=== PATIENT | male | born 2000 | race Two or more races ===

== ENCOUNTER 2025-09-01 19:42 | Inpatient (IN) | payer MEDICAID, SELFPAY ==
[2025-09-01 19:44] VITALS: BMI 37.5
--- NOTE | 2025-09-01 19:49 | EKG_ITS ---
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
[2025-09-01 19:55] VITALS: BP 102/63; PULSE 130; RESP 20; TEMP 39.3; O2SAT 96
--- NOTE | 2025-09-01 19:59 | XR_ITS ---
EXAMINATION: PA chest single view TECHNIQUE: Upright PA chest single view Date and time: September 01, 20252005 hours INDICATIONS: Weakness shortness of breath today fever 9 days FINDINGS: Normal heart size No pneumonia or pulmonary edema. The osseous mirela are intact. IMPRESSION: No active disease
--- NOTE | 2025-09-01 20:01 | PD.EDRME ---
Rapid Medical Screening Exam E Arrival date/time: 09/01/25 19:42 This is a case of 24-year-old male who came into the emergency room due to generalized weakness and chest pain for 2 days worsening of the symptoms this patient decided to start consult here in the emergency room Chief Complaint: Weakness Vital signs: Vital Signs Temperature 102.8 F H 09/01/25 19:55 Pulse Rate 130 H 09/01/25 19:55 Respiratory Rate 20 09/01/25 19:55 Blood Pressure 102/63 09/01/25 19:55 Pulse Oximetry (%) 96 09/01/25 19:55 Oxygen Delivery Method Room Air 09/01/25 19:55 Exam: And RRR clear breath sounds Clinical Impression: Chest pain generalized weakness
[2025-09-01 21:03] LABS: Basophils # (Auto) 0.0 Thou/mm3 (0.0-0.2); Basophils % (Auto) 0 % (0-2.5); Eosinophils # (Auto) 0.1 Thou/mm3 (0.0-0.5); Eosinophils % (Auto) 2 % (0-10); Hematocrit 35.8 % (41.0-53.0); Hemoglobin 12.7 g/dL (13.5-16.0); Immature Granulocytes Auto 0.01 Thou/mm3 (0.00-0.00); Lymphocytes # (Auto) 1.0 Thou/mm3 (1.0-4.8); Lymphocytes % (Auto) 18 % (10-50); Mean Corpuscular HGB Conc 35.5 g/dl (31.0-37.0); Mean Corpuscular Hemoglobin 30.8 pg (25.0-35.0); Mean Corpuscular Volume 87 fL (80-100); Monocytes # (Auto) 0.5 Thou/mm3 (0.0-0.8); Monocytes % (Auto) 9 % (0-12); Neutrophils # (Auto) 3.9 Thou/mm3 (1.8-7.7); Neutrophils % (Auto) 72 % (37-80); Nucleated Red Blood Cell # 0.00 Thou/mm3 (0.00-0.00); Nucleated Red Blood Cell % 0 /100 WBC (0); Platelet Count 129 Thou/mm3 (140-440); RDW Standard Deviation 38.9 fL (35.1-43.9); Red Blood Count 4.12 Miln/mm3 (4.50-5.90); White Blood Count 5.5 Thou/mm3 (3.8-10.6)
[2025-09-01 21:23] LABS: Alanine Aminotransferase 482 U/L (10-49); Albumin, Serum 4.1 gm/dL (3.5-5.0); Albumin/Globulin Ratio 1.5 (1.2-2.2); Alkaline Phosphatase 201 U/L (46-116); Anion Gap 9 (7-16); Aspartate Amino Transferase 183 U/L (0-34); BUN/Creatinine Ratio 11 Ratio (12-20); Bilirubin,Total 4.9 mg/dL (0.3-1.2); Blood Urea Nitrogen 9 mg/dL (9-23); Calcium 8.4 mg/dL (8.3-10.6); Calcium (Corrected) 8.4 mg/dL (8.5-10.1); Carbon Dioxide 23.0 mMol/L (20.0-31.0); Chloride 96 mMol/L (98-107); Creatinine (Component) 0.8 mg/dL (0.6-1.3); Estimated Creatinine Clearance 169.0 mL/min (>60); Globulin 2.8 gm/dL (2.3-3.5); Glucose 118 mg/dL (74-106); Osmolality,Calculated 256 (275-295); Potassium 3.4 mMol/L (3.4-5.1); Sodium 128 mMol/L (136-145); Total Protein 6.9 gm/dL (5.7-8.2); Troponin I 0.028 ng/mL (0.0-0.045); eGFR > 60 See Note
[2025-09-01 21:35] LABS: B-Type Natriuretic Peptide 204 pg/mL (0-100)
--- NOTE | 2025-09-01 21:37 | PD.EDWEAK ---
ED Weakness RME/HPI General Chief complaint: Weakness Stated complaint: RIGHT ABD PAIN, CHEST PAIN, SOB, FEVER, COUGH, Time Seen by Provider: 09/02/25 04:19 Arrival date/time: 09/01/25 19:42 RME / HPI RME / HPI Narrative: 09/01/25 19:42 This is a case of 24-year-old male who came into the emergency room due to generalized weakness and chest pain for 2 days worsening of the symptoms this patient decided to start consult here in the emergency room Dr. Hernandez?s Main ED Evaluation: 24yo male presenting with reported fever that's been ongoing for the last 9 days. Patient reports associated generalized body aches, occasional nonproductive cough, and generalized fatigue. Patient was seen by his PMD 3 days [employer], was diagnosed with otitis, and started on amoxicillin (which he discontinued due to GI upset). No vomiting or diarrhea. No URI-like symptoms. No obvious infectious exposures. PMH unremarkable. PSH noncontributory. No history of tobacco use. Reports recent methamphetamine abuse and near daily drinking nearly up to one case on the weekends. NKA. Related Data Home Medications ?Medication ?Instructions ?Recorded ?Confirmed No Known Home Medications 04/09/23 09/02/25 Allergies Allergy/AdvReac Type Severity Reaction Status Date / Time No Known Allergies Allergy Verified 09/01/25 19:43 Review of Systems Review of Systems Systems Reviewed: All systems reviewed, normal except as documented Past Medical History Past Medical History CARDIAC: Negative Congestive Heart Failure RESPIRATORY: Negative Chronic Obstructive Pulmonary Disease (COPD) GENITOURINARY: Negative Renal Disease ENDOCRINE: Negative Diabetes Mellitus Type 1 or Diabetes Mellitus Type 2 Social History SMOKING STATUS: Current some day smoker ED Exam Narrative Physical exam: GENERAL APPEARANCE: alert and oriented x 4, well-developed, well-nourished, no acute distress VITALS: All vitals were reviewed and the pulse ox is 96% on room air, which is normal according to my interpretation. Notably febrile and tachycardic. HEENT: Normocephalic, atraumatic; pupils equal, round, reactive to light; EOMI; mucous membranes pink, moist; oropharynx clear NECK: Supple LUNGS: CTABL; no wheezes, no rales, no rhonchi HEART: Tachycardic, regular rhythm; normal S1, S2; no murmurs ABDOMEN: non distended; normal BS; soft, no tenderness, no guarding, no rebound; no masses, no organomegaly, no hernia BACK: no CVA tenderness EXTREMITIES: atraumatic; no edema NEUROLOGIC: awake; alert and oriented x4; cranial nerves II-XII grossly intact; no focal sensory or motor deficits PSYCHIATRIC: appropriate mood and affect SKIN: warm, dry, slightly pale; no rashes Course Course Course Narrative: CXR is ordered for determining the etiology of weakness. 2145: Sepsis alert initiated. Orders made at this time are congruent with ED Adult Sepsis Order List. Re-evaluation is to be completed. 0: NS IVF started. 9: NS IVF infused. 0009: Sepsis reassessment performed consisting of lab review, vitals, physical exam including auscultation of heart, lungs, and visual evaluation of capillary refills, mucosal membranes and extremities. Quality Measures Possible source: GI tract/intra-abdominal Blood cultures ordered: yes Antibiotic ordered: Yes Pertinent labs: 09/01/25 09/01/25 20:39 21:58 Lactic Acid 1.1 mMol/L (0.4-2.0) Procalcitonin 0.53 H ng/ml (0.0-0.49) sepsis Orders Category Date Time Status Admit to Inpatient Status Routine Admission 09/02/25 04:29 Active Patient Condition Routine Admission 09/02/25 04:29 Ordered Activity as Tolerated Routine Care 09/02/25 04:31 Ordered Bedside COVID-19 Antigen Test NOW Care 09/02/25 01:35 Completed EKG (ED ONLY) *Do not use* NOW Care 09/01/25 19:49 Completed IV [Insert IV] NOW Care 09/01/25 22:18 Completed May take PO meds w/sips of H2O NEEDED Care 09/02/25 04:29 Active Notify provider NEEDED Care 09/02/25 04:[address] abdomen pelvis wo con Stat Exams 09/01/25 21:59 Completed EKG (ED Only) Stat Exams 09/01/25 19:49 Draft US liver Stat Exams 09/02/25 03:11 Completed XR chest 1V Stat Exams 09/01/25 19:59 Completed ANTIONE IFA Screen w/refl, IFA* Stat Lab 09/02/25 02:50 Received Acetaminophen Stat Lab 09/02/25 03:16 Completed BNP [B-Type Natriuretic Peptide] Stat Lab 09/01/25 20:39 Completed Bilirubin,Direct Stat Lab 09/02/25 02:34 Completed Blood Culture (Lab) Stat Lab 09/01/25 20:39 Received CBC AM DRAW Lab 09/02/25 07:25 Completed CBC AM DRAW Lab 09/03/25 05:00 Ordered CBC AM DRAW Lab 09/04/25 05:00 Ordered CBC Stat Lab 09/01/25 20:39 Completed CMP [Comprehensive Metabolic Panel] Stat Lab 09/01/25 20:39 Completed Chlamydia/GC/TV - PCR Stat Lab 09/02/25 15:15 Received Comprehensive Metabolic Panel AM DRAW Lab 09/02/25 07:25 Completed Comprehensive Metabolic Panel AM DRAW Lab 09/03/25 05:00 Ordered Comprehensive Metabolic Panel AM DRAW Lab 09/04/25 05:00 Ordered Cytomegalovirus Abs (IgG,IgM)* Stat Lab 09/02/25 14:30 Ordered Drug Screen,Urine Stat Lab 09/02/25 02:28 Completed Gerard-Jarrett Virus Ab Panel* Stat Lab 09/02/25 14:30 Ordered HIV (1&2) Antibody Rapid Stat Lab 09/02/25 02:40 Completed Hepatitis Acute Panel Stat Lab 09/01/25 20:39 Completed Influenza A & B Rapid Panel Stat Lab 09/02/25 05:40 Completed LDH (Lactate Dehydrogenase) Routine Lab 09/02/25 07:25 Completed Lactic Acid [Lactate (Lactic Acid)] Stat Lab 09/01/25 21:58 Completed Lipid Panel AM DRAW Lab 09/02/25 07:25 Completed Magnesium AM DRAW Lab 09/02/25 07:25 Completed Magnesium AM DRAW Lab 09/03/25 05:00 Ordered Magnesium AM DRAW Lab 09/04/25 05:00 Ordered Mitochondrial Ab w Rflx Titer* Stat Lab 09/02/25 Received PT [Prothrombin Time with INR] Stat Lab 09/02/25 02:35 Completed PTT [Partial Thromboplastin Time] Stat Lab 09/02/25 02:35 Completed Phosphorous AM DRAW Lab 09/03/25 05:00 Ordered Phosphorous AM DRAW Lab 09/04/25 05:00 Ordered Phosphorous AM DRAW Lab 09/05/25 05:00 Ordered Procalcitonin Stat Lab 09/01/25 20:39 Completed Reticulocyte Count Routine Lab 09/02/25 07:25 Completed Thyroid Stimulating Hormone AM DRAW Lab 09/02/25 07:25 Completed Troponin I Stat Lab 09/01/25 20:39 Completed Urinalysis Stat Lab 09/02/25 02:28 Completed Acetaminophen Tab [Tylenol Tab] Med 09/02/25 04:35 Active 650 mg PO Q6H PRN Acetaminophen Tab [Tylenol Tab] Med 09/02/25 04:35 Active 650 mg PO Q6H PRN Heparin Inj Med 09/02/25 06:00 Active 5,000 unit SC Q8HR Ondansetron Inj [Zofran Inj] Med 09/02/25 04:35 Active 4 mg IVP Q6H PRN Ringers Lactated 1000 ml [Lactated Ringers] 1,000 ml Med 09/02/25 03:22 Discontinued IV 999 mls/hr Sodium Chloride 0.9% 1000 ml [Ns] 1,000 ml Med 09/01/25 21:55 Discontinued IV 999 mls/hr Sodium Chloride 0.9% 1000 ml [Ns] 1,000 ml Med 09/01/25 21:55 Discontinued IV 999 mls/hr cefTRIAXone/D5w 1gm IV premix [Rocephin/D5w 1gm IV Med 09/01/25 21:56 Discontinued premix] 1 gm in 50 ml IV X1 Code Status Routine Oth 09/02/25 04:29 Ordered Vital Signs Vital signs: Vital Signs Temperature 102.8 F H 09/01/25 19:55 Pulse Rate 130 H 09/01/25 19:55 Respiratory Rate 20 09/01/25 19:55 Blood Pressure 102/63 09/01/25 19:55 Pulse Oximetry (%) 96 09/01/25 19:55 Oxygen Delivery Method Room Air 09/01/25 19:55 Weakness MDM Narrative MDM Narrative:: Scribe Attestation: 09/01/25 Molly Colbert am scribing for and in the presence of Dr. Hernandez. 24yo male presenting with reported fever that's been ongoing for the last 9 days. Patient reports associated generalized body aches, occasional nonproductive cough, and generalized fatigue. Please see PE findings. Labs demonstrated WBC 5.5, HnH 12/35, Plt 129. Chemistries demonstrated hyponatremia with Na 128, Cl 96, Glucose mildly elevated 118. LFTs are markedly elevated with total bilirubin 4.9, transaminases at 183 (AST), 482 (ALT), and 201 (Alk Phos). Troponin undetected. Procalcitonin mildly elevated at 0.53. CXR unremarkable. CT abdomen pelvis demonstrated no evidence of acute intra-abdominal pathology, however, there is port hepatis lymphadenopathy. Differential includes lymphoma, reactive lymphadenopathy, no evidence of ascites. Patient enrolled in sepsis protocol, received IV fluids and empiric antibiotics. After IV fluids, tachycardia improved to 107. Patient also received antipyretics with reduction of temperature to 99. UA pending. Will consider admission for empiric antibiotics pending cultures. Dx: acute febrile illness, sepsis, hepatitis Patient data External records reviewed:: [facility] previous records (Per chart review, patient was seen here on 04/12/23 for cocaine abuse.) Clinical information provided by:: patient Social determinants that could affect healthcare access:: substance use (history of) Patient has the following chronic illnesses:: none How is presenting disease/condition affected by chronic disease/condition?: no chronic disease Evaluation data The following diagnostics were reviewed and interpreted by me:: lab results, radiology exam(s) and EKG tracing(s) Lab and/or radiology exams considered but not ordered:: none Interpretation Summary: EKG done at 1957, sinus tachycardia, rate of 132, no acute pathological ST segment changes, no ectopy, normal intervals, left axis deviation, according to my interpretation. [facility] Report Signed Patient: KYLER VILLEDA Record#: [id number] Birthdate: 2000 Age/Sex: 24 / M Location: [facility] Attending Dr: Ordering Physician: Ebenezer Hodges Date of Service: 09/01/25 Procedure(s): XR chest 1V Accession Number(s): [id number] cc: Geoff Mccarty MD; Diego Chopra MD; Ebenezer Hodges~ EXAMINATION: PA chest single view TECHNIQUE: Upright PA chest single view Date and time: September 01, 20252005 hours INDICATIONS: Weakness shortness of breath today fever 9 days FINDINGS: Normal heart size No pneumonia or pulmonary edema. The osseous mirela are intact. IMPRESSION: No active disease Dictated By: Diego Chopra MD Signed By: <Electronically signed by Diego Chopra MD in OV> 09/01/252101 [place] Preliminary Report Draft Patient: KYLER VILLEDA Record#: [id number] Birthdate: 2000 Age/Sex: 24 / M Location: [facility] Attending Dr: Ordering Physician: Date of Service: Procedure(s): Accession Number(s): cc: ~ CT scan of the abdomen and pelvis without intravenous contrast (axial sections with sagittal and coronal reformats) September 02, 2025 0012 hours Clinical History: sepsis// biliary obstruction Comparison: No prior study is available for comparison. Findings: The evaluation is limited due to absence of intravenous contrast. Bibasilar dependent atelectasis is present. There is fatty infiltration of the liver. There is a left renal cyst, measuring 1.9 cm. The gallbladder, pancreas, spleen, kidneys and adrenals are unremarkable on this noncontrast study. No evidence of bowel obstruction. The appendix is within normal limits. There are multiple enlarged mesenteric, retroperitoneal and evelyn hepatis lymph nodes, the largest measuring 1.3 cm. The urinary bladder is unremarkable. There is no free fluid or free air. There is a transitional vertebra at the lumbosacral junction. Impression: Limited noncontrast study. No evidence of acute intra-abdominal or pelvic pathology. Mesenteric, retroperitoneal and evelyn hepatis lymphadenopathy, of unclear etiology. Recommend further evaluation. Other findings as described above. Report Electronically Signed By: Morgan Sykes 09/02/2025 1:19:23 AM [EST] Medications / Prescriptions Medications or Prescriptions considered but not ordered:: none Medication administrations:: Medication Administration History Acetaminophen (Acetaminophen 325 Mg Tablet) 650 mg PO Q6H PRN PRN Reason: Fever >100.3 Stop: 10/02/25 04:34 Last Admin: 09/02/25 11:46 Dose: 650 mg Documented By: Admin: 09/02/25 04:58 Dose: 650 mg Documented By: LINDA Acetaminophen (Acetaminophen 325 Mg Tablet) 650 mg PO Q6H PRN PRN Reason: PAIN SCALE 1-3 (mild Stop: 10/02/25 04:34 Folic Acid (Folic Acid 1 Mg Tablet) 1 mg PO BID [facility] Stop: 09/07/25 08:59 Last Admin: 09/02/25 09:55 Dose: 1 mg Documented By: JENNIFER Heparin Sodium (Porcine) (Heparin Sod Inj 5000 Unit/Ml Vial) 5,000 unit SC Q8HR [facility] Stop: 09/16/25 05:59 Last Admin: 09/02/25 13:21 Dose: 5,000 unit Documented By: JENNIFER Co-signed By: LUIS A Admin: 09/02/25 06:34 Dose: 5,000 unit Documented By: Co-signed By: MILAN Lorazepam (Lorazepam 0.5 Mg Tablet) 0.5 mg PO Q4HR PRN PRN Reason: CIWA Score 2-6 Stop: 09/07/25 08:24 Lorazepam (Lorazepam 0.5 Mg Tablet) 1 mg PO Q4HR PRN PRN Reason: CIWA SCORE 7-11 Stop: 09/07/25 08:24 Lorazepam (Lorazepam 0.5 Mg Tablet) 2 mg PO Q4HR PRN PRN Reason: CIWA SCORE 12-15 Stop: 09/07/25 08:24 Ondansetron HCl (Ondansetron Inj 2 Mg/Ml Inj 2 Ml) 4 mg IVP Q6H PRN; Protocol PRN Reason: NAUSEA OR VOMITING Stop: 10/02/25 04:34 Thiamine HCl (Thiamine 100 Mg Tablet) 100 mg PO BID [facility] Stop: 09/08/25 08:59 Discontinued Medications Sodium Chloride (Ns) 1,000 mls @ 999 mls/hr IV .Q1H1M ONE Stop: 09/01/25 22:55 Last Infusion: 09/01/25 23:39 Dose: Infused Documented By: Admin: 09/01/25 22:20 Dose: 999 mls/hr Documented By: LINDA Sodium Chloride (Ns) 1,000 mls @ 999 mls/hr IV .Q1H1M ONE Stop: 09/01/25 22:55 Last Infusion: 09/01/25 23:39 Dose: Infused Documented By: Admin: 09/01/25 22:20 Dose: 999 mls/hr Documented By: LINDA Ceftriaxone Sodium/Dextrose (Rocephin/D5w 1gm Iv Premix) 1 gm in 50 mls @ 100 mls/hr IV X1 ONE Stop: 09/01/25 22:25 Last Infusion: 09/01/25 23:08 Dose: Infused Documented By: Admin: 09/01/25 22:31 Dose: 100 mls/hr Documented By: LINDA Lactated Ringer's (Lactated Ringers) 1,000 mls @ 999 mls/hr IV .Q1H1M ONE Stop: 09/02/25 04:22 Last Infusion: 09/02/25 05:57 Dose: Infused Documented By: Admin: 09/02/25 04:36 Dose: 999 mls/hr Documented By: LINDA Sodium Chloride (Ns) 1,000 mls @ 999 mls/hr IV .Q1H1M ONE Stop: 09/02/25 05:59 Last Admin: 09/02/25 05:24 Dose: Not Given Documented By: LINDA Non-Admin Reason: Discontinued Thiamine HCl 500 mg/ Sodium (Chloride) 55 mls @ 102 mls/hr IV X1 ONE Stop: 09/02/25 08:57 Last Admin: 09/02/25 11:10 Dose: Not Given Documented By: MGD Non-Admin Reason: Duplicate Medication on eMAR Potassium Chloride (Kcl Ivpb) 10 meq in 100 mls @ 100 mls/hr IV Q1H JOHN Stop: 09/02/25 12:26 Last Admin: 09/02/25 15:01 Dose: 100 mls/hr Documented By: Infusion: 09/02/25 14:21 Dose: Infused Documented By: Admin: 09/02/25 13:21 Dose: 100 mls/hr Documented By: Infusion: 09/02/25 12:37 Dose: Infused Documented By: Admin: 09/02/25 11:37 Dose: 100 mls/hr Documented By: Infusion: 09/02/25 10:55 Dose: Infused Documented By: Admin: 09/02/25 09:55 Dose: 100 mls/hr Documented By: MGD Potassium Chloride (Potassium Chloride 20 Meq Tabcr) 40 meq PO X1 ONE Stop: 09/02/25 11:16 Last Admin: 10/27/25 11:25 Dose: 40 meq Documented By: JENNIFER Thiamine HCl (Thiamine Inj 100 Mg/Ml Vial 2 Ml) 500 mg IV X1 ONE Stop: 09/02/25 08:46 Last Admin: 09/02/25 11:08 Dose: 500 mg Documented By: JENNIFER see above Consultations Consultation(s) initiated? (list below): Yes Consultation #1 (Physician, Specialty, Details): Discussed case with the resident physician, attending Dr. Moreno from Hospitalist service regarding admission. Discussed patients ED course, exam findings, labs, and radiology results. The Hospitalist requests liver US. Time: 01:47 Consultation #2 (Physician, Specialty, Details): The Hospitalist accepts the patient for admission. Time: 04:22 Diagnosis Weakness Differential Diagnosis: other (See MDM) Most likely diagnosis given after review of the tests above:: see clinical impression below Admission Indicated Admission indicated?: indicated Admission Request Was there a request for admission?: Yes Admission Attestation Admission request attestation: Discussed case with [] from Hospitalist service regarding admission. Discussed patients ED course, exam findings, labs, and radiology results. The Hospitalist [agrees,declines] to accept the patient for admission. Disposition Plan Disposition Plan: Admit Critical Care Time Critical Care Time Critical Care Time: Yes Total Critical Care Time (min.): 35 Attestation: The high probability of sudden, clinically significant deterioration in the patient?s condition required the highest level of my preparedness to intervene urgently. The services I provided to this patient were to treat and/or prevent clinically significant deterioration. Services included the following: chart data review, reviewing nursing notes and/or old charts, documentation time, search engine optimization consultant collaboration regarding findings and treatment options, medication orders and management, direct patient care, vital sign assessments and ordering, interpreting and reviewing diagnostic studies and lab tests. Aggregate critical care time includes only time during which I was engaged in work directly related to the patient?s care, as described above, whether at bedside or elsewhere in the Emergency Department. It did not include time spent performing other reported procedures or the services of residents, students, nurses or physician assistants. Discharge Plan Plan Patient Disposition: Admit Acute Care w/in Hospital Problem List Clinical Impression: Acute febrile illness, Sepsis, Hepatitis
--- NOTE | 2025-09-01 21:59 | XR_ITS ---
Examination: CT abdomen and pelvis without contrast. Coronal 3-D reconstructions. Sagittal 2-D reconstructions. Date and time of exam: September 02, 2025, 0010 hours INDICATIONS: Right side abdominal pain fever coughing and sepsis today, clinical diagnosis biliary obstruction CTDI: vol (mGy): 12.1 DLP: (mGycm): 755 Technique: Axial images of the abdomen have been obtained, 3 mm slice thickness Intravenous contrast material has not been administered. Low dose protocols were performed. One or more of the following dose reduction techniques were used; automated exposure control, adjustment of the mA and/or KV according to patient size, use of iterative reconstruction technique. Findings: Diffuse fatty infiltration throughout the liver, hepatomegaly 23 cm, splenomegaly 13 cm Contracted gallbladder No pancreatic or adrenal mass No renal or ureteral calculi Multiple small abdominal and pelvic lymph nodes as well as mesenteric lymph nodes Normal appendix No bowel obstruction No diverticulitis Urinary bladder intact No prostatomegaly The osseous structures are intact IMPRESSION: Hepatosplenomegaly Multiple small abdominal, pelvic and mesenteric lymph nodes, clinical correlation advised, consider early Hodgkin's disease non-Hodgkin's lymphoma, recommend 3-month follow-up CT chest abdomen and pelvis post intravenous contrast
[2025-09-01 22:01] LABS: Lactate (Lactic Acid) 1.1 mMol/L (0.4-2.0)
[2025-09-01 22:02] VITALS: BP 108/71; PULSE 103; RESP 18; TEMP 37.9; O2SAT 99
[2025-09-01] MEDS: SODIUM CHLORIDE 0.9% 1000 ML 1,000 ML 999 ML IV ×2 (22:20)
[2025-09-01] MEDS: cefTRIAXone/D5w 1gm IV premix 1 GM/50 ML BAG IV (22:31)
[2025-09-01 22:39] LABS: Procalcitonin 0.53 ng/ml (0.0-0.49)
[2025-09-01 23:10] LABS: Hepatitis A Antibody IgM Non Reactive (Non React); Hepatitis B Core Antibody IgM Non Reactive (Non React); Hepatitis B Surface Antigen Non Reactive (Non React); Hepatitis C Antibody Non Reactive (Non React)
[2025-09-01 23:54] VITALS: BP 103/65; PULSE 107; RESP 15; TEMP 37.4; O2SAT 99
[2025-09-02] VITALS (15 sets, daily range): BP systolic 96–115; BP diastolic 50–78; PULSE 70–126; RESP 16–24; TEMP 36.8–38.6; O2SAT 94–98; BMI 38.6
--- NOTE | 2025-09-02 01:20 | PRELIM_ITS ---
CT scan of the abdomen and pelvis without intravenous contrast (axial sections with sagittal and coronal reformats) September 02, 2025 0012 hours Clinical History: sepsis// biliary obstruction Comparison: No prior study is available for comparison. Findings: The evaluation is limited due to absence of intravenous contrast. Bibasilar dependent atelectasis is present. There is fatty infiltration of the liver. There is a left renal cyst, measuring 1.9 cm. The gallbladder, pancreas, spleen, kidneys and adrenals are unremarkable on this noncontrast study. No evidence of bowel obstruction. The appendix is within normal limits. There are multiple enlarged mesenteric, retroperitoneal and evelyn hepatis lymph nodes, the largest measuring 1.3 cm. The urinary bladder is unremarkable. There is no free fluid or free air. There is a transitional vertebra at the lumbosacral junction. Impression: Limited noncontrast study. No evidence of acute intra-abdominal or pelvic pathology. Mesenteric, retroperitoneal and evelyn hepatis lymphadenopathy, of unclear etiology. Recommend further evaluation. Other findings as described above. Report Electronically Signed By: Morgan Sykes 09/02/2025 1:19:23 AM [EST]
[2025-09-02 02:37] LABS: Collection Type, Urine Clean Catch
[2025-09-02 02:49] LABS: INR 1.1 (0.9-1.3); Partial Thromboplastin Time 29.7 Seconds (22.0-36.0); Prothrombin Time 11.6 Seconds (9.0-12.2)
[2025-09-02 02:49] LABS: Amphetamine/Methamp Scrn,U Negative (Negative); Barbiturate Screen,Urine Negative (Negative); Benzodiazepines Screen,Urine Negative (Negative); Benzoylecgonine Screen, Ur Negative (Negative); Fentanyl Screen,Urine Negative (Negative); Opiate Screen,Urine Negative (Negative); THC Screen,Urine Negative (Negative)
[2025-09-02 02:53] LABS: Bilirubin,Direct 3.3 mg/dL (0.0-0.3)
[2025-09-02 03:08] LABS: Amorphous Crystals,Urine Present (Absent); Bilirubin,Urine 2+ (Negative); Blood,Urine Negative (Negative); Clarity,Urine Clear (Clear/Hazy); Color,Urine Drk-Yellow (Lt Yel-Yel); Glucose, Urine Negative (Negative); Ketones,Urine 1+ (Negative); Leukocyte Esterase,Urine Negative (Negative); Nitrite,Urine Negative (Negative); PH,Urine 6.5 (5.0-7.0); Protein,Urine Trace (Neg - Trace); RBC,Urine 4 /hpf (0-3); Specific Gravity,Urine 1.018 (1.001-1.035); Squamous Epithelial Cell,Urine 1 /hpf (0-5); Urobilinogen,Urine 8.0 mg/dL (0.0-1.0); WBC,Urine 4 /hpf (0-5)
--- NOTE | 2025-09-02 03:11 | XR_ITS ---
Examination: Abdomen sonogram, Limited Date and time of exam: September 02, 2025, 0333 hours INDICATIONS: Fever coughing today with elevated total bilirubin on laboratory examination today Technique: Real-time bah scale transabdominal sonographic images of the upper abdomen obtained. Findings: Contracted gallbladder No gallbladder wall thickening or edema Common bile duct 0.3 cm Pancreatic head 3.0 cm Pattern megaly 21.6 cm fatty infiltration no focal liver lesions Normal hepatopetal portal venous flow Patent IVC IMPRESSION: Recommend repeating the gallbladder portion of the study with fasting Significant hepatomegaly fatty infiltration
[2025-09-02 03:52] LABS: HIV (1&2) Antibody Rapid Non-Reactive
--- NOTE | 2025-09-02 04:28 | PRELIM_ITS ---
Ultrasound liver. September 02, 2025 0333 hours Clinical history: Elevated T.bili. Fever x1 day. Correlated with the prior CT abdomen and pelvis study performed earlier today at 0012 hrs. Findings: Grayscale and colour Doppler ultrasound of the liver and upper abdomen was performed. The liver is enlarged, measuring 21.6 cm in length and demonstrates increased echogenicity consistent with hepatic steatosis. No focal hepatic lesion or intrahepatic biliary ductal dilatation is identified. The main portal vein shows hepatopetal flow, and the IVC is patent. The hepatic veins are patent. The gallbladder is contracted with a normal wall thickness of 0.3 cm. No gallstones or sludge are seen. The common bile duct measures 0.3 cm, within normal limits. The pancreas appears normal, with the head measuring 3 cm. Impression: Hepatomegaly with fatty infiltration of the liver (hepatic steatosis). Recommend correlation with liver function tests for assessment of hepatic steatosis significance. No evidence of biliary obstruction. Report Electronically Signed By: Morgan Sykes 09/02/2025 4:28:27 AM [EST]
[2025-09-02] MEDS: RINGERS LACTATED 1000 ML 1,000 ML 999 ML IV (04:36)
--- NOTE | 2025-09-02 04:38 | ESHP_ITS ---
Documentation for date of: 09/02/25 HPI History of Present Illness History of present illness: Mr. Barbosa is a 24 y/o male with PMH of polysubstance use disorder (EtOH, cocaine, meth) who presented to the ED 09/01 with fever, generalized weakness, and malaise x 9 days. Patient drinks ~30 alcoholic beverages per week, last drink was Tuesday, 08/23, after which he developed a fever, chills, and generalized myalgia. The fever is temporarily controlled by Tylenol, ibuprofen, Nyquil and Dayquil but has not resolved on its own. Notes several episodes of vomitus over the 9 days but denies current nausea or vomiting. He is able to tolerate PO intake but has decreased appetite. Associated with dry cough for the past 9 days. Also had several episodes of left sided chest pressure that has since self-resolved, no radiation of pain, no shortness of breath. Has mild diffuse abdominal pain that is slightly more intense in the RLQ. Denies dysuria, urinary frequency, but did notice orange-red tinged urine several days ago. Denies current sore throat, congestion, rhinorrhea, nausea, vomiting, paresthesias, focal weakness. Patient was recently treated for acute otitis media with amoxicillin which he discontinued due to GI distress. No recent travel outside [place]. ED course: Febrile 102.8, tachycardic 130. Labs significant for hgb 12.7, HCT 35.8, plt 129, Na 128, Cl 96, AST 183, ALT 482, alk phos 201, total bili 4.9. UA negative for UTI. Lactic acid, troponin WNL. Hepatitis panel non reactive. BNP 204, procal 0.53. EKG sinus tahcycardia HR 132, QTc 468. CXR unremarkable. CT a/p showed mesenteric, retroperitoneal, and evelyn hepatis lymphadenipathy. Pending blood cx. Given 2L NS, ceftriaxone 1 g IV. PMHx: polysubstance use disorder Allergies: NKDA Home meds: none SgHx: none SHx: Drinks 30 alcoholic beverages per week, drinks everyday. Last alcohol use 08/23. Occasional/social tobacco use. Reports cocaine use. Per ED note, patient also has previous meth use. FHx: T2DM - mother, heart disease - father Review of Systems Review of Systems Narrative Review of Systems: 14 point ROS negative other than HPI Exam Vital Signs Temp Pulse Resp BP Pulse Ox O2 Del Method 101.4 F H 112 H 19 115/65 97 Room Air 09/02/25 03:56 09/02/25 03:56 09/02/25 03:56 09/02/25 03:56 09/02/25 03:56 09/02/25 03:56 Narrative Exam General: No acute distress, well nourished Eye: PERRL, EOMI, normal conjunctiva, no scleral icterus HENT: Normocephalic, atraumatic, normal hearing, dry oral mucosa Neck: Supple, non-tender, no JVD, no lymphadenopathy Lungs: Clear to auscultation bilaterally, non-labored respirations, symmetric chest rise, no use of accessory muscles Heart: Normal S1 and S2, no S3 or S4 appreciated. Normal rate and regular rhythm, slight early systolic murmur heard at midsternal 4th and 5th ribs. Peripheral pulses intact bilaterally, capillary refill brisk distally Abdomen: Soft, non-distended, mild TTP RLQ normal bowel sounds. No guarding or rebound tenderness. Musculoskeletal: Normal range of motion and strength, no tenderness or swelling Skin: Skin is warm, dry, no rashes or lesions. Neurologic: Alert, awake and oriented x3. CN II-XII grossly intact. No focal neuro deficits. No signs of meningeal irritation noted. Psychiatric: Cooperative, appropriate mood and affect Results: Labs 09/03/25 05:07 09/03/25 05:07 Labs: Short CBC 09/01/25 Range/Units 20:39 WBC 5.5 (3.8-10.6) Thou/mm3 Hgb 12.7 L (13.5-16.0) g/dL Hct 35.8 L (41.0-53.0) % Plt Count 129 L (140-440) Thou/mm3 BMP 09/01/25 20:39 Sodium 128 L Potassium 3.4 Chloride 96 L Carbon Dioxide 23.0 BUN 9 Creatinine 0.8 Glucose 118 H Calcium 8.4 Cardiac Enzymes 09/01/25 Range/Units 20:39 Troponin I 0.028 (0.0-0.045) ng/mL Liver Function 09/01/25 09/01/25 Range/Units 20:39 22:20 Total Bilirubin 4.9 H (0.3-1.2) mg/dL Direct Bilirubin 3.3 H (0.0-0.3) mg/dL AST 183 H (0-34) U/L ALT 482 H (10-49) U/L Alkaline Phosphatase 201 H (46-116) U/L Albumin 4.1 (3.5-5.0) gm/dL Urine 09/02/25 Range/Units 02:28 Urine Color Drk-Yellow A (Lt Yel-Yel) Urine Clarity Clear (Clear/Hazy) Urine pH 6.5 (5.0-7.0) Ur Specific [place] 1.018 (1.001-1.035) Urine Protein Trace (Neg - Trace) Urine Glucose (UA) Negative (Negative) Quality Measures Quality Measures sepsis Current suspected stage: ruled out Possible source: other Blood cultures ordered: yes Antibiotic ordered: No Medications Home Medications and Allergies Home Medications ?Medication ?Instructions ?Recorded ?Confirmed ?Type No Known Home Medications 04/09/2308/08 History Allergies Allergy/AdvReac Type Severity Reaction Status Date / Time No Known Allergies Allergy Verified 09/01/25 19:43 Visit Medications Acetaminophen (Acetaminophen 325 Mg Tablet) 650 mg PO Q6H PRN PRN Reason: Fever >100.3 Stop: 10/02/25 04:34 Acetaminophen (Acetaminophen 325 Mg Tablet) 650 mg PO Q6H PRN PRN Reason: PAIN SCALE 1-3 (mild Stop: 10/02/25 04:34 Heparin Sodium (Porcine) (Heparin Sod Inj 5000 Unit/Ml Vial) 5,000 unit SC Q8HR JOHN Stop: 09/16/25 05:59 Ondansetron HCl (Ondansetron Inj 2 Mg/Ml Inj 2 Ml) 4 mg IVP Q6H PRN; Protocol PRN Reason: NAUSEA OR VOMITING Stop: 10/02/25 04:34 Discontinued Medications Sodium Chloride (Ns) 1,000 mls @ 999 mls/hr IV .Q1H1M ONE Stop: 09/01/25 22:55 Last Infusion: 09/01/25 23:39 Dose: Infused Sodium Chloride (Ns) 1,000 mls @ 999 mls/hr IV .Q1H1M ONE Stop: 09/01/25 22:55 Last Infusion: 09/01/25 23:39 Dose: Infused Ceftriaxone Sodium/Dextrose (Rocephin/D5w 1gm Iv Premix) 1 gm in 50 mls @ 100 mls/hr IV X1 ONE Stop: 09/01/25 22:25 Last Infusion: 09/01/25 23:08 Dose: Infused Lactated Ringer's (Lactated Ringers) 1,000 mls @ 999 mls/hr IV .Q1H1M ONE Stop: 09/02/25 04:22 Last Admin: 09/02/25 04:36 Dose: 999 mls/hr Assessment & Plan Plan Mr. Barbosa is a 24 y/o male with PMH of polysubstance use disorder (EtOH, cocaine, meth) who presented to the ED 09/01 with fever, generalized weakness, and malaise x 9 days. #SIRS criteria Febrile T max 102.8, tachycardic 130 (improved with IVF). Lactic WNL. Procal 0.53. UA negative for UTI. CXR unremarkble. HIV negative. Hepatitis panel nonreactive CT a/p w/o contrast showed mesenteric, retroperitoneal, and evelyn hepatis lymphadenopathy (prelim read) Given 2L NS and ceftriaxone 1 g IV in ED No source of infection identified at this time. Plan: - Pending blood cx, STI panel - Currently getting another liter NS - Tylenol PO PRN #Acute liver injury #Transaminitis #Direct hyperbilirubinemia #Hepatic steatosis Not encephalopathic, no RUQ TTP. BMI 37. AST 183, ALT 482, alk phos 201. Total bili 4.9, direct bili. hgb 12.7, plt 129. Coags WNL. Acetaminophen level WNL. HIV negative. Hepatits panel non reactive. Liver US showed hepatomegaly with fatty infiltration of liver. No evidence of biliary obstruction (prelim read) Patient's labs indicate a mixed cholestatic (direct hyperbilirubinemia) and hepatocellular pattern (ALT > AST) DDX: sepsis-associated cholestasis, drug-induced liver injury (amoxicillin for acute otitis media), viral (EBV/CMV), autoimmune Plan: - Consult GI, appreciate recs - Pending EBV and CMV Ab, ANTIONE, mitochondrial Ab, iron panel, ferritin, retic count, LDH, ceruloplasmin - Pending lipid panel, A1C, TSH - Can consider CT a/p with contrast - CTM with daily CMP #Hyponatremia On admit Na 128 Plan: - CTM with daily CMP #Normocytic anemia On admit hgb 12.7, HCT 35.8 No active s/sx bleed Plan: - CTM with daily CBC #Thrombocytopenia On admit plt 129 i/s/o acute liver failure Plan: - CTM with daily CBC - Management of acute liver failure as above #Hyperketonuria #Bilirubinuria Plan: - Management of acute liver failure as above #Polysubstance use (EtOH, cocaine, methamphetamine) UDS negative Plan: - Counseled pt on cessation Checklist Dispo: admit to [facility] tele Diet: NPO except water Bowel Reg: n/a VTE ppx: heparin subQ GI ppx: n/a Pain mgmt: Tylenol PRN Code status: full Plan discussed with Dr. Garcia and Dr. Tiffanie Whaley MD PGY1 Attending Provider Attestation/Addendum After examination of the patient and review of the clinical data I feel that this patient needs admission to the hospital for further treatment/evaluation. Plan of care discussed with patient and is in agreement. I Laisha Moreno MD, attest that I was physically present for allison portions of evaluation, and examined patient, labs and imagings and plan of care were discussed with IM residents team, and I agree with the findings and plans documented above.
[2025-09-02 04:48] LABS: Acetaminophen < 2.0 mcg/mL (10.0-20.0)
[2025-09-02] MEDS: ACETAMINOPHEN 325 MG TABLET 650 MG PO ×3 (04:58→20:07)
[2025-09-02] MEDS: HEPARIN SOD INJ 5000 UNIT/ML VIAL SC ×3 (06:34→21:50)
[2025-09-02 07:13] LABS: Influenza A Ag Negative; Influenza B Ag Negative
[2025-09-02 08:02] LABS: Basophils # (Auto) 0.0 Thou/mm3 (0.0-0.2); Basophils % (Auto) 0 % (0-2.5); Eosinophils # (Auto) 0.1 Thou/mm3 (0.0-0.5); Eosinophils % (Auto) 2 % (0-10); Hematocrit 32.2 % (41.0-53.0); Hemoglobin 11.2 g/dL (13.5-16.0); Immature Granulocytes Auto 0.03 Thou/mm3 (0.00-0.00); Immature Reticulocyte Fraction 10.3 % (2.3-13.4); Lymphocytes # (Auto) 0.8 Thou/mm3 (1.0-4.8); Lymphocytes % (Auto) 15 % (10-50); Mean Corpuscular HGB Conc 34.8 g/dl (31.0-37.0); Mean Corpuscular Hemoglobin 31.2 pg (25.0-35.0); Mean Corpuscular Volume 90 fL (80-100); Monocytes # (Auto) 0.5 Thou/mm3 (0.0-0.8); Monocytes % (Auto) 9 % (0-12); Neutrophils # (Auto) 4.0 Thou/mm3 (1.8-7.7); Neutrophils % (Auto) 73 % (37-80); Nucleated Red Blood Cell # 0.00 Thou/mm3 (0.00-0.00); Nucleated Red Blood Cell % 0 /100 WBC (0); Platelet Count 150 Thou/mm3 (140-440); RDW Standard Deviation 40.8 fL (35.1-43.9); Red Blood Count 3.59 Miln/mm3 (4.50-5.90); Reticulocyte % (Auto) 0.7 % (0.5-1.5); Reticulocyte Absolute Auto 26.2 Biln/L (25.0-75.0); Reticulocyte Hgb Content 33.8 pg (28.0-35.0); White Blood Count 5.4 Thou/mm3 (3.8-10.6)
[2025-09-02 08:21] LABS: Anion Gap 10 (7-16); BUN/Creatinine Ratio 9 Ratio (12-20); Blood Urea Nitrogen 6 mg/dL (9-23); Carbon Dioxide 22.9 mMol/L (20.0-31.0); Chloride 102 mMol/L (98-107); Creatinine (Component) 0.7 mg/dL (0.6-1.3); Potassium 3.2 mMol/L (3.4-5.1); Sodium 135 mMol/L (136-145)
[2025-09-02 08:22] LABS: Alanine Aminotransferase 368 U/L (10-49); Albumin, Serum 3.6 gm/dL (3.5-5.0); Albumin/Globulin Ratio 1.8 (1.2-2.2); Alkaline Phosphatase 155 U/L (46-116); Aspartate Amino Transferase 123 U/L (0-34); Bilirubin,Total 3.6 mg/dL (0.3-1.2); Calcium 7.9 mg/dL (8.3-10.6); Calcium (Corrected) 8.2 mg/dL (8.5-10.1); Cardiac Risk Estimate 13.0 RATIO (4.0-6.7); Cholesterol 138 mg/dL (132-200); Estimated Creatinine Clearance 195.9 mL/min (>60); Globulin 2.0 gm/dL (2.3-3.5); Glucose 108 mg/dL (74-106); HDL Cholesterol < 10 mg/dL (40-60); Iron 43 mcg/dL (65-175); LDH (Lactate Dehydrogenase) 307 U/L (120-246); LDL Cholesterol,Calculated 82 mg/dL (0-130); Magnesium 2.1 mg/dL (1.6-2.6); Osmolality,Calculated 268 (275-295); Percent Iron Saturation 17 % (20-55); Thyroid Stimulating Hormone 1.01 uIU/mL (0.55-4.78); Total Iron Binding Capacity 241 mcg/dL (250-425); Total Protein 5.6 gm/dL (5.7-8.2); Triglycerides 228 mg/dL (30-150); Unsaturated Iron Binding 198 (225-295); eGFR > 60 See Note
[2025-09-02 08:39] LABS: Ferritin 1468 ng/mL (10.5-307.3)
[2025-09-02] MEDS: POTASSIUM CHL 10 mEq IVPB 10 MEQ/100 ML BAG 100 MEQ IV ×4 (09:55→15:01)
[2025-09-02] MEDS: FOLIC ACID 1 MG TABLET PO ×2 (09:55→20:07)
[2025-09-02] MEDS: THIAMINE INJ 100 MG/ML VIAL 2 ML 500 MG IV (11:08)
--- NOTE | 2025-09-02 11:40 | PC.SS ---
Addendum entered by Jimena Judd 09/02/25 14:50: SS met with patient at bedside to provide ETOH resources. Patient denies any mental health diagnoses. Patient reports he has been drinking since he was 17 Years old . Pt states he drinks Beer on a daily basis and has been wanting to stop. Pt states he is interested in sobriety. Pt open to receiving resources, the following were provided to the pt: Health and Human Services office information on alcohol abuse, the warm line, list of mental health clinics, list of AA meetings, list of alcohol rehabs, and community resource list. At the time patient is on CIWA Protocol. No further needs at the time. Original Note: Patient Barak Barbosa is a 24 Year old male admitted for Acute Liver Failure. SS met with patient at bedside to discuss discharge plan and verify demographic information. Patient reports he lives at home with his child. Patient reports his surrogate decision maker is his mother, Ольга Moyer [phone]. Patient reports he is able to complete all ADL's and complete all ADL's independently. [facility] of [facility] is [facility]. PCP is Geoff Fitch. At time of discharge patient will return back home. Mother will provide transportation. Discharge plan: Home next of kin: Mother, Ольга Bethea
--- NOTE | 2025-09-02 14:18 | ESPR_ITS ---
<Statement entered by Ruel Morales MD - 09/02/25 17:26> I saw and examined patient personally and supervised PGY 1 resident, Dr. Alva with formulating a management plan. I agree with the documentation with the exceptions as listed below. Patient was admitted for acute liver injury with transaminitis. His synthetic function appears to be intact with no signs of thrombocytopenia or coagulopathy, therefore he does not have acute liver failure. Patient also endorsed extensive alcohol use drinking approximately 30 beers per day with unclear history of his last drink. He also endorsed history of multiple sexual partners and does not use condoms consistently. Patient placed on CIWA protocol and STI panel ordered. Currently pending blood and urine cultures. Plan of care discussed with Attending Dr. Gerald Morales MD PGY 2 Disclaimer: This note was dictated by speech recognition. Minor errors in city maintenance manager may be present due to voice recognition software. Documentation for date of: 09/02/25 Subjective Subjective Interval history: No overnight events. Patient was examined at bedside; they appear A&Ox4 and in NAD. Vitals/labs today significant for hemoglobin 12.7->11.2, sodium 128->135, potassium 3.4->3.2, corrected calcium 8.4->8.2, TBili 4.9->3.6 (DBili 3.3), AST 183->123, ALT 482->368, ALP 201->155, LDH 307, and triglycerides 228. Physical exam notable for scleral icterus, diffuse abdominal rash, and mild tenderness to palpation of the abdominal RLQ. 09/02 limited abdominal US showed significant hepatomegaly with fatty infiltration. Patient will be maintained on CIWA due to his significant drinking history (though patient reports last alcoholic beverage was on 08/23 and UDS was negative for alcohol). He will also be started on PO folic acid 1 mg BID and PO thiamine 100 mg BID for the above issue. Patient's hyponatremia has corrected via fluid restriction of 1500 mL and multiple infusions of IV NS. Will follow-up on labs ordered to work-up patient's acute liver failure and continued fevers (last one occurring around 12:00 today at 101.5 degrees, no convincing sources of infection). Exam Vital Signs Temp Pulse Resp BP Pulse Ox O2 Del Method 101.1 F H 126 H 24 H 112/78 94 L Room Air 09/02/25 12:00 09/02/25 12:00 09/02/25 12:00 09/02/25 12:00 09/02/25 12:00 09/02/25 12:00 Narrative Exam General: No acute distress, well nourished Eye: Some scleral icterus. PERRL, EOMI, normal conjunctiva, HENT: Normocephalic, atraumatic, normal hearing, dry oral mucosa Neck: Supple, non-tender, no JVD, no lymphadenopathy Lungs: Clear to auscultation bilaterally, non-labored respirations, symmetric chest rise, no use of accessory muscles Heart: Normal S1 and S2, no S3 or S4 appreciated. Normal rate and regular rhythm, slight early systolic murmur heard at midsternal 4th and 5th ribs. Peripheral pulses intact bilaterally, capillary refill brisk distally Abdomen: Diffuse abdominal rash. Soft, non-distended, mild TTP RLQ normal bowel sounds. No guarding or rebound tenderness. Musculoskeletal: Normal range of motion and strength, no tenderness or swelling Skin: Skin is warm, dry, no rashes or lesions. Neurologic: Alert, awake and oriented x3. CN II-XII grossly intact. No focal neuro deficits. No signs of meningeal irritation noted. Psychiatric: Cooperative, appropriate mood and affect Objective Labs 09/03/25 05:07 09/03/25 05:07 Labs: Laboratory Results - last 24 hr 09/01/25 09/01/25 09/01/25 20:39 21:58 22:20 WBC 5.5 RBC 4.12 L Hgb 12.7 L Hct 35.8 L MCV 87 MCH 30.8 MCHC 35.5 RDW Std Deviation 38.9 Plt Count 129 L Neut % (Auto) 72 Lymph % (Auto) 18 [place] % (Auto) 9 Eos % (Auto) 2 Baso % (Auto) 0 Neut # (Auto) 3.9 Lymph # (Auto) 1.0 Deuel # (Auto) 0.5 Eos # (Auto) 0.1 Baso # (Auto) 0.0 Immature Gran # (Auto) 0.01 H Absolute Nucleated RBC 0.00 Immature Gran % 0 Nucleated RBC % 0 Retic Count (auto) Absolute Retic Immature Retic Fraction Retic Hgb Content CHr PT 11.6 INR 1.1 APTT 29.7 Sodium 128 L Potassium 3.4 Chloride 96 L Carbon Dioxide 23.0 Anion Gap 9 BUN 9 Creatinine 0.8 Estim Creat Clear Calc 169.0 eGFR > 60 BUN/Creatinine Ratio 11 L Glucose 118 H Calculated Osmolality 256 L Lactic Acid 1.1 Calcium 8.4 Corrected Calcium 8.4 L Magnesium Iron TIBC Iron Saturation Unsat Iron Binding Ferritin Total Bilirubin 4.9 H Direct Bilirubin 3.3 H AST 183 H ALT 482 H Alkaline Phosphatase 201 H Lactate Dehydrogenase Troponin I 0.028 B-Natriuretic Peptide 204 H Total Protein 6.9 Albumin 4.1 Globulin 2.8 Albumin/Globulin Ratio 1.5 Triglycerides Cholesterol LDL Cholesterol, Calc HDL Cholesterol Cholesterol/HDL Ratio Procalcitonin 0.53 H TSH Ur Collection Type Urine Color Urine Clarity Urine pH Ur Specific [place] Urine Protein Urine Glucose (UA) Urine Ketones Urine Blood Urine Nitrite Urine Bilirubin Urine Urobilinogen (Auto) Ur Leukocyte Esterase Urine RBC Urine WBC Ur Squamous Epith Cells Amorphous Crystals Urine Bacteria Urine Opiates Screen Urine Fentanyl Screen Acetaminophen Ur Barbiturates Screen U Amphetamin/Meth Scrn U Benzodiazepines Scrn U Cocaine Metab Screen U Marijuana (THC) Screen Hepatitis A IgM Ab Non Reactive Hep Bs Antigen Non Reactive Hep B Core IgM Ab Non Reactive Hepatitis C Antibody Non Reactive HIV 1&2 Antibody Rapid Non-Reactive Influenza A (Rapid) Influenza B (Rapid) 09/01/25 09/02/25 09/02/25 22:22 02:28 05:40 WBC RBC Hgb Hct MCV MCH MCHC RDW Std Deviation Plt Count Neut % (Auto) Lymph % (Auto) Deuel % (Auto) Eos % (Auto) Baso % (Auto) Neut # (Auto) Lymph # (Auto) Deuel # (Auto) Eos # (Auto) Baso # (Auto) Immature Gran # (Auto) Absolute Nucleated RBC Immature Gran % Nucleated RBC % Retic Count (auto) Absolute Retic Immature Retic Fraction Retic Hgb Content CHr PT INR APTT Sodium Potassium Chloride Carbon Dioxide Anion Gap BUN Creatinine Estim Creat Clear Calc eGFR BUN/Creatinine Ratio Glucose Calculated Osmolality Lactic Acid Calcium Corrected Calcium Magnesium Iron TIBC Iron Saturation Unsat Iron Binding Ferritin Total Bilirubin Direct Bilirubin AST ALT Alkaline Phosphatase Lactate Dehydrogenase Troponin I B-Natriuretic Peptide Total Protein Albumin Globulin Albumin/Globulin Ratio Triglycerides Cholesterol LDL Cholesterol, Calc HDL Cholesterol Cholesterol/HDL Ratio Procalcitonin TSH Ur Collection Type Clean Catch Urine Color Drk-Yellow A Urine Clarity Clear Urine pH 6.5 Ur Specific [place] 1.018 Urine Protein Trace Urine Glucose (UA) Negative Urine Ketones 1+ A Urine Blood Negative Urine Nitrite Negative Urine Bilirubin 2+ A Urine Urobilinogen (Auto) 8.0 Ur Leukocyte Esterase Negative Urine RBC 4 H Urine WBC 4 Ur Squamous Epith Cells 1 Amorphous Crystals Present A Urine Bacteria None Urine Opiates Screen Negative Urine Fentanyl Screen Negative Acetaminophen < 2.0 L Ur Barbiturates Screen Negative U Amphetamin/Meth Scrn Negative U Benzodiazepines Scrn Negative U Cocaine Metab Screen Negative U Marijuana (THC) Screen Negative Hepatitis A IgM Ab Hep Bs Antigen Hep B Core IgM Ab Hepatitis C Antibody HIV 1&2 Antibody Rapid Influenza A (Rapid) Negative Influenza B (Rapid) Negative 09/02/25 07:25 WBC 5.4 RBC 3.59 L Hgb 11.2 L Hct 32.2 L MCV 90 MCH 31.2 MCHC 34.8 RDW Std Deviation 40.8 Plt Count 150 Neut % (Auto) 73 Lymph % (Auto) 15 Deuel % (Auto) 9 Eos % (Auto) 2 Baso % (Auto) 0 Neut # (Auto) 4.0 Lymph # (Auto) 0.8 L Deuel # (Auto) 0.5 Eos # (Auto) 0.1 Baso # (Auto) 0.0 Immature Gran # (Auto) 0.03 H Absolute Nucleated RBC 0.00 Immature Gran % 1 H Nucleated RBC % 0 Retic Count (auto) 0.7 Absolute Retic 26.2 Immature Retic Fraction 10.3 Retic Hgb Content CHr 33.8 PT INR APTT Sodium 135 L Potassium 3.2 L Chloride 102 Carbon Dioxide 22.9 Anion Gap 10 BUN 6 L Creatinine 0.7 Estim Creat Clear Calc 195.9 eGFR > 60 BUN/Creatinine Ratio 9 L Glucose 108 H Calculated Osmolality 268 L Lactic Acid Calcium 7.9 L Corrected Calcium 8.2 L Magnesium 2.1 Iron 43 L TIBC 241 L Iron Saturation 17 L Unsat Iron Binding 198 L Ferritin 1468 H Total Bilirubin 3.6 H D Direct Bilirubin AST 123 H ALT 368 H Alkaline Phosphatase 155 H D Lactate Dehydrogenase 307 H Troponin I B-Natriuretic Peptide Total Protein 5.6 L Albumin 3.6 D Globulin 2.0 L Albumin/Globulin Ratio 1.8 Triglycerides 228 H Cholesterol 138 LDL Cholesterol, Calc 82 HDL Cholesterol < 10 L Cholesterol/HDL Ratio 13.0 H Procalcitonin TSH 1.01 Ur Collection Type Urine Color Urine Clarity Urine pH Ur Specific Pin[place] Urine Protein Urine Glucose (UA) Urine Ketones Urine Blood Urine Nitrite Urine Bilirubin Urine Urobilinogen (Auto) Ur Leukocyte Esterase Urine RBC Urine WBC Ur Squamous Epith Cells Amorphous Crystals Urine Bacteria Urine Opiates Screen Urine Fentanyl Screen Acetaminophen Ur Barbiturates Screen U Amphetamin/Meth Scrn U Benzodiazepines Scrn U Cocaine Metab Screen U Marijuana (THC) Screen Hepatitis A IgM Ab Hep Bs Antigen Hep B Core IgM Ab Hepatitis C Antibody HIV 1&2 Antibody Rapid Influenza A (Rapid) Influenza B (Rapid) Quality Measures Quality Measures sepsis Current suspected stage: ruled out Possible source: other Blood cultures ordered: yes Antibiotic ordered: No Assessment & Plan Assessment Current Active Medications: Generic Name Dose Route Start Last Admin Trade Name Freq PRN Reason Stop Dose Admin Acetaminophen 650 mg 09/02/25 04:35 09/02/25 11:46 Acetaminophen 325 Mg Tablet PO 10/02/25 04:34 650 mg Q6H PRN Administration Fever >100.3 Acetaminophen 650 mg 09/02/25 04:35 Acetaminophen 325 Mg Tablet PO 10/02/25 04:34 Q6H PRN PAIN SCALE 1-3 (mild Folic Acid 1 mg 09/02/25 09:00 09/02/25 09:55 Folic Acid 1 Mg Tablet PO 09/07/25 08:59 1 mg BID JOHN Administration Heparin Sodium (Porcine) 5,000 unit 09/02/25 06:00 09/02/25 13:21 Heparin Sod Inj 5000 Unit/Ml Vial SC 09/16/25 05:59 5,000 unit Q8HR JOHN Administration Lorazepam 0.5 mg 09/02/25 08:25 Lorazepam 0.5 Mg Tablet PO 09/07/25 08:24 Q4HR PRN CIWA Score 2-6 Lorazepam 1 mg 09/02/25 08:25 Lorazepam 0.5 Mg Tablet PO 09/07/25 08:24 Q4HR PRN CIWA SCORE 7-11 Lorazepam 2 mg 09/02/25 08:25 Lorazepam 0.5 Mg Tablet PO 09/07/25 08:24 Q4HR PRN CIWA SCORE 12-15 Ondansetron HCl 4 mg 09/02/25 04:35 Ondansetron Inj 2 Mg/Ml Inj 2 Ml IVP 10/02/25 04:34 Q6H PRN NAUSEA OR VOMITING Protocol Thiamine HCl 100 mg 09/03/25 09:00 Thiamine 100 Mg Tablet PO 09/08/25 08:59 BID JOHN Plan Mr. Barbosa is a 24 y/o male with PMH of polysubstance use disorder (EtOH, cocaine, meth) who presented to the ED 09/01 with fever, generalized weakness, and malaise x 9 days and admitted for acute liver failure and acute febrile illness. #Acute liver injury 2/2 #Alcoholic hepatitis #Chronic alcohol dependence #Transaminitis #Direct hyperbilirubinemia #Hepatic steatosis Not encephalopathic, no RUQ TTP. BMI 37. AST 183, ALT 482, alk phos 201. Total bili 4.9, direct bili. hgb 12.7, plt 129. Coags WNL. Acetaminophen level WNL. HIV negative. Hepatitis panel non reactive. No evidence of biliary obstruction (prelim read) Patient's labs indicate a mixed cholestatic (direct hyperbilirubinemia) and hepatocellular pattern (ALT > AST) DDx: sepsis-associated cholestasis, drug-induced liver injury (amoxicillin for acute otitis media), viral (EBV/CMV), autoimmune Dx: -09/01 CTAP showed hepatosplenomegaly and multiple small abdominal, pelvic and mesenteric lymph nodes, possibly suggestive of early Hodgkin's disease or non- Hodgkin's lymphoma, (IR recommends 3-month follow-up CT chest abdomen and pelvis post intravenous contrast) -09/02 liver US showed significant hepatomegaly and fatty infiltration -Pending EBV and CMV Ab, ANTIONE, mitochondrial Ab, iron panel, ferritin, retic count, LDH, ceruloplasmin -Pending lipid panel, A1C, TSH Rx: -Consulted GI, appreciate recs #SIRS criteria Febrile T max 102.8, tachycardic 130 (improved with IVF). Lactic WNL. Procal 0.53. UA negative for UTI. CXR unremarkable. HIV negative. Hepatitis panel nonreactive CT a/p w/o contrast showed mesenteric, retroperitoneal, and portal hepatic lymphadenopathy (prelim read) Given 2L NS and ceftriaxone 1 g IV in ED No source of infection identified at this time. Dx: - 09/01 blood Cx ordered, showed ___ - STI panel ordered, showed ___ Rx: - Tylenol PO PRN #Polysubstance use disorder #Alcohol use disorder Patient reported cocaine use and is also documented to have previous methamphetamine use He also reports drinking 30 alcoholic beverages per week and that his last drink was on 08/23 UDS this admission was negative Rx: -CIWA protocol -PO folic acid 1 mg twice daily -PO thiamine 100 mg twice daily #Hyponatremia (resolved) On admit Na 128 Now up-trended to 135 on 09/02, resolved Plan: -Fluid restriction of 1500 mL/day -CTM with daily CMP #Normocytic anemia On admit hgb 12.7, HCT 35.8 No active s/sx bleed Dx: -Iron panel as above Rx: - CTM with daily CBC #Thrombocytopenia (improving) On admit plt 129 i/s/o acute liver failure Now 150 on 09/02 Plan: - CTM with daily CBC - Management of acute liver failure as above Hospital Management: Disposition: Ad[facility] for workup and management of acute liver failure and continuing febrile episodes Diet: Regular GI Prophylaxis: Not indicated Bowel Prophylaxis: None DVT Prophylaxis: Heparin CODE STATUS: Full Code I have examined the patient and conferred with my attending, Dr. Duarte, and my senior resident, Dr. Morales, regarding them. Jason Alva DO PGY-1 Internal Medicine Attending Provider Attestation/Addendum I have discussed and was present for the essential components of the history, physical examination, diagnosis, and treatment plan with the resident. I agree with the patient's care as documented by the resident and amended herein by me. Vamsi Duarte DO. Although this document has been carefully reviewed, there may still be some phonetic and other typographical errors. These errors are purely grammatical due to imperfections in the software program and should not be construed in any way to compromise the substance of the patient's medical care during this visit.
[2025-09-02 15:51] LABS: Alcohol, Urine Negative (Negative)
--- NOTE | 2025-09-02 22:46 | PD.IMCONS ---
HPI Data of Consult Requesting Physician: Laisha Moreno MD Primary Care Provider: Geoff Mccarty MD Consult Narrative Reason for consult: Abnormal LFTs., Transaminitis History of present illness: I been asked to evaluate 24 years old male who presented to the emergency room with abnormal liver function test fever chills malaise and not feeling well He was found to have abnormal liver function test Patient does use at least 30 beers a week and also has history of cocaine and meth abuse Total bilirubin on admission was 4.9 AST ALT 183 and 482 and alk phos of 201 Pro-Anshu was 0.53 Pro time INR 1.1 Liver ultrasound shows fatty liver with total size 21.[address] scan of the abdomen pelvis showed hepatosplenomegaly and suspected small pericaval aortic and pelvic lymph nodes and mesenteric lymph nodes I have been consulted cc:: cc: Laisha Moreno MD Review of Systems Review of Systems Systems Reviewed: All systems reviewed, normal except as documented Past Medical History Surgical History OTHER SURGICAL HX: As in the history of present illness Meds Home Medications and Allergies Home Medications ?Medication ?Instructions ?Recorded ?Confirmed ?Type No Known Home Medications 04/09/23 09/02/25 History Allergies Allergy/AdvReac Type Severity Reaction Status Date / Time No Known Allergies Allergy Verified 09/01/25 19:43 Exam Vital Signs Temp Pulse Resp BP Pulse Ox O2 Del Method 98.5 F 101 H 16 112/61 97 Room Air 09/02/25 21:05 09/02/25 20:00 09/02/25 19:50 09/02/25 19:50 09/02/25 19:50 09/02/25 19:50 Constitutional Comments: Chronically ill-appearing Routine Respiratory Exam Comments: Normal to auscultation Routine Abdominal Exam Comments: Soft nontender Results Labs 09/02/25 07:25 09/02/25 07:25 Labs: Short CBC 09/02/25 Range/Units 07:25 WBC 5.4 (3.8-10.6) Thou/mm3 Hgb 11.2 L (13.5-16.0) g/dL Hct 32.2 L (41.0-53.0) % Plt Count 150 (140-440) Thou/mm3 BMP 09/02/25 07:25 Sodium 135 L Potassium 3.2 L Chloride 102 Carbon Dioxide 22.9 BUN 6 L Creatinine 0.7 Glucose 108 H Calcium 7.9 L Liver Function 09/01/25 09/02/25 Range/Units 22:20 07:25 Total Bilirubin 3.6 H D (0.3-1.2) mg/dL Direct Bilirubin 3.3 H (0.0-0.3) mg/dL AST 123 H (0-34) U/L ALT 368 H (10-49) U/L Alkaline Phosphatase 155 H D (46-116) U/L Albumin 3.6 D (3.5-5.0) gm/dL Urine 09/02/25 Range/Units 02:28 Urine Color Drk-Yellow A (Lt Yel-Yel) Urine Clarity Clear (Clear/Hazy) Urine pH 6.5 (5.0-7.0) Ur Specific [place] 1.018 (1.001-1.035) Urine Protein Trace (Neg - Trace) Urine Glucose (UA) Negative (Negative) Assessment and Plan Additional Assessment & Plan Additional Plan: # Abnormal liver function tests secondary to alcohol abuse and also polysubstance abuse Patient not in any fulminant hepatic failure Patient not thrombocytopenic with a platelet count of 150,000 and pro time INR is 1.1 Has hepatosplenomegaly as well as fatty liver Suggestions Complete workup for the chronic active hepatitis ordered some of it has been already ordered Complete abstinence from alcohol and polysubstance abuse Follow the LFTs No need for any liver biopsy Will follow the patient while in hospital # Fever with abnormal CT scan of the abdomen pelvis with intra-abdominal lymphadenopathy Consult radiology to see if one of the lymph nodes can be biopsied to look for any evidence of underlying lymphoma Thank you very much for the opportunity to evaluate this patient
[2025-09-02 23:40] LABS: AFP Non-Pregnant < 1.30 ng/mL (<8.10)
[2025-09-03] VITALS (13 sets, daily range): BP systolic 101–116; BP diastolic 60–73; PULSE 93–122; RESP 12–20; TEMP 36.2–38.3; O2SAT 95–97
[2025-09-03] MEDS: ACETAMINOPHEN 325 MG TABLET 650 MG PO ×2 (04:14→18:25)
[2025-09-03] MEDS: HEPARIN SOD INJ 5000 UNIT/ML VIAL SC ×3 (05:07→22:29)
[2025-09-03 05:47] LABS: Basophils # (Auto) 0.0 Thou/mm3 (0.0-0.2); Basophils % (Auto) 0 % (0-2.5); Eosinophils # (Auto) 0.1 Thou/mm3 (0.0-0.5); Eosinophils % (Auto) 3 % (0-10); Hematocrit 33.1 % (41.0-53.0); Hemoglobin 11.5 g/dL (13.5-16.0); Immature Granulocytes Auto 0.03 Thou/mm3 (0.00-0.00); Lymphocytes # (Auto) 0.9 Thou/mm3 (1.0-4.8); Lymphocytes % (Auto) 17 % (10-50); Mean Corpuscular HGB Conc 34.7 g/dl (31.0-37.0); Mean Corpuscular Hemoglobin 31.0 pg (25.0-35.0); Mean Corpuscular Volume 89 fL (80-100); Monocytes # (Auto) 0.5 Thou/mm3 (0.0-0.8); Monocytes % (Auto) 9 % (0-12); Neutrophils # (Auto) 3.7 Thou/mm3 (1.8-7.7); Neutrophils % (Auto) 71 % (37-80); Nucleated Red Blood Cell # 0.00 Thou/mm3 (0.00-0.00); Nucleated Red Blood Cell % 0 /100 WBC (0); Platelet Count 192 Thou/mm3 (140-440); RDW Standard Deviation 41.3 fL (35.1-43.9); Red Blood Count 3.71 Miln/mm3 (4.50-5.90); White Blood Count 5.2 Thou/mm3 (3.8-10.6)
[2025-09-03 05:58] LABS: Glucose Estimated Average 117 mg/dL (80-131); Hemoglobin A1C 5.7 % Hgb (4.8-6.0)
[2025-09-03 06:20] LABS: Alanine Aminotransferase 299 U/L (10-49); Albumin, Serum 3.7 gm/dL (3.5-5.0); Albumin/Globulin Ratio 1.7 (1.2-2.2); Alkaline Phosphatase 146 U/L (46-116); Anion Gap 10 (7-16); Aspartate Amino Transferase 101 U/L (0-34); BUN/Creatinine Ratio 8 Ratio (12-20); Bilirubin,Total 3.2 mg/dL (0.3-1.2); Blood Urea Nitrogen 5 mg/dL (9-23); Calcium 8.2 mg/dL (8.3-10.6); Calcium (Corrected) 8.4 mg/dL (8.5-10.1); Carbon Dioxide 22.0 mMol/L (20.0-31.0); Chloride 99 mMol/L (98-107); Creatinine (Component) 0.6 mg/dL (0.6-1.3); Estimated Creatinine Clearance 228.5 mL/min (>60); Globulin 2.2 gm/dL (2.3-3.5); Glucose 102 mg/dL (74-106); Lipase 44 U/L (12-53); Magnesium 2.1 mg/dL (1.6-2.6); Osmolality,Calculated 259 (275-295); Phosphorous 2.3 mg/dL (2.4-5.1); Potassium 3.8 mMol/L (3.4-5.1); Sodium 131 mMol/L (136-145); Total Protein 5.9 gm/dL (5.7-8.2); eGFR > 60 See Note
[2025-09-03] MEDS: FOLIC ACID 1 MG TABLET PO ×2 (08:38→21:05)
[2025-09-03] MEDS: THIAMINE 100 MG TABLET PO ×2 (08:38→21:05)
--- NOTE | 2025-09-03 10:38 | ESPR_ITS ---
<Statement entered by Ruel Morales MD - 09/04/25 07:51> I saw and examined patient personally and supervised PGY 1 resident, Dr. Alva with formulating a management plan. I agree with the documentation with the exceptions as listed below. Patient still continues to spike temperatures >101 daily. Cocci serology negative as well as blood cultures. If patient continues to spike fevers will obtain transthoracic echocardiogram and repeat blood cultures to further investigate for possible infective endocarditis. Patient had a headache and mild neck stiffness on day 1 which are now resolving. We will continue to monitor with a high degree of suspicion. Plan of care discussed with Attending Dr. Jt Morales MD PGY 2 Disclaimer: This note was dictated by speech recognition. Minor errors in distribution spec may be present due to voice recognition software. Documentation for date of: 09/03/25 Subjective Subjective Interval history: Overnight, patient continued to spike fevers with the last one of 101 degrees occurring at 04:00. Patient was examined at bedside; they appear A&Ox4 and in NAD. Today, they denied any symptoms of headache and exhibited no meningeal signs of physical exam. Vitals/labs today significant for HR 102, Hgb 11.5, sodium 135->131, corrected calcium 8.5->8.4, TBili 3.6->3.2, AST 123->101, ALT 368->299, ALP 155->146. Due to patient's abdominopelvic and mesenteric lymphadenopathy concerning for malignancy, Oncology (Dr. Messina) was consulted and recommended CT-guided biopsy of abdominal lymph node. However, per IR, patient's abdominal lymph nodes are too small to be biopsied at this time and instead recommends 3 month follow-up CT CAP w/ contrast. The etiology behind patient's continued febrile episodes and acute liver injury remains unclear but differentials include alcoholic hepatitis, STI, malignancy, or autoimmune processes. Exam Vital Signs Temp Pulse Resp BP Pulse Ox O2 Del Method 97.5 F 102 H 16 101/73 95 Room Air 09/03/25 07:47 09/03/25 07:47 09/03/25 07:47 09/03/25 07:47 09/03/25 07:47 09/03/25 07:47 Narrative Exam General: No acute distress, well nourished Eye: Some scleral icterus. PERRL, EOMI, normal conjunctiva, HEENT: Normocephalic, atraumatic, normal hearing, dry oral mucosa Neck: Supple, non-tender, no JVD, no lymphadenopathy Lungs: Clear to auscultation bilaterally, non-labored respirations, symmetric chest rise, no use of accessory muscles Heart: Normal S1 and S2, no S3 or S4 appreciated. Normal rate and regular rhythm, slight early systolic murmur heard at midsternal 4th and 5th ribs. Peripheral pulses intact bilaterally, capillary refill brisk distally Abdomen: Diffuse abdominal rash no longer present. Soft, non-distended, mild TTP RLQ normal bowel sounds. No guarding or rebound tenderness. Musculoskeletal: Normal range of motion and strength, no tenderness or swelling Skin: Skin is warm, dry, no rashes or lesions. Neurologic: Alert, awake and oriented x3. CN II-XII grossly intact. No focal neuro deficits. No signs of meningeal irritation noted. Psychiatric: Cooperative, appropriate mood and affect Objective Labs 09/04/25 04:50 09/04/25 04:50 Labs: Laboratory Results - last 24 hr 09/02/25 09/02/25 09/03/25 02:28 07:25 05:07 WBC 5.2 RBC 3.71 L Hgb 11.5 L Hct 33.1 L MCV 89 MCH 31.0 MCHC 34.7 RDW Std Deviation 41.3 Plt Count 192 D Neut % (Auto) 71 Lymph % (Auto) 17 [place] % (Auto) 9 Eos % (Auto) 3 Baso % (Auto) 0 Neut # (Auto) 3.7 Lymph # (Auto) 0.9 L [place] # (Auto) 0.5 Eos # (Auto) 0.1 Baso # (Auto) 0.0 Immature Gran # (Auto) 0.03 H Absolute Nucleated RBC 0.00 Immature Gran % 1 H Nucleated RBC % 0 Sodium 131 L Potassium 3.8 D Chloride 99 Carbon Dioxide 22.0 Anion Gap 10 BUN 5 L Creatinine 0.6 Estim Creat Clear Calc 228.5 eGFR > 60 BUN/Creatinine Ratio 8 L Glucose [address] Glu mg/dL 117 Hemoglobin A1c 5.7 Calculated Osmolality 259 L Calcium 8.2 L Corrected Calcium 8.4 L Phosphorus 2.3 L Magnesium 2.1 Total Bilirubin 3.2 H AST 101 H ALT 299 H Alkaline Phosphatase 146 H Total Protein 5.9 Albumin 3.7 Globulin 2.2 L Albumin/Globulin Ratio 1.7 Lipase 44 Tumor Marker AFP < 1.30 Urine Alcohol Negative Quality Measures Quality Measures sepsis Current suspected stage: ruled out Possible source: GI tract/intra- abdominal Blood cultures ordered: yes Antibiotic ordered: Yes Assessment & Plan Assessment Current Active Medications: Generic Name Dose Route Start Last Admin Trade Name Freq PRN Reason Stop Dose Admin Acetaminophen 650 mg 09/02/25 04:35 09/03/25 04:14 Acetaminophen 325 Mg Tablet PO 10/02/25 04:34 650 mg Q6H PRN Administration Fever >100.3 Acetaminophen 650 mg 09/02/25 04:35 Acetaminophen 325 Mg Tablet PO 10/02/25 04:34 Q6H PRN PAIN SCALE 1-3 (mild Folic Acid 1 mg 09/02/25 09:00 09/03/25 08:38 Folic Acid 1 Mg Tablet PO 09/07/25 08:59 1 mg BID JOHN Administration Heparin Sodium (Porcine) 5,000 unit 09/02/25 06:00 09/03/25 05:07 Heparin Sod Inj 5000 Unit/Ml Vial SC 09/16/25 05:59 5,000 unit Q8HR JOHN Administration Lorazepam 0.5 mg 09/02/25 08:25 Lorazepam 0.5 Mg Tablet PO 09/07/25 08:24 Q4HR PRN CIWA Score 2-6 Lorazepam 1 mg 09/02/25 08:25 Lorazepam 0.5 Mg Tablet PO 09/07/25 08:24 Q4HR PRN CIWA SCORE 7-11 Lorazepam 2 mg 09/02/25 08:25 Lorazepam 0.5 Mg Tablet PO 09/07/25 08:24 Q4HR PRN CIWA SCORE 12-15 Ondansetron HCl 4 mg 09/02/25 04:35 Ondansetron Inj 2 Mg/Ml Inj 2 Ml IVP 10/02/25 04:34 Q6H PRN NAUSEA OR VOMITING Protocol Thiamine HCl 100 mg 09/03/25 09:00 09/03/25 08:38 Thiamine 100 Mg Tablet PO 09/08/25 08:59 100 mg BID JOHN Administration Plan Mr. Barbosa is a 24 y/o male with PMH of polysubstance use disorder (EtOH, cocaine, meth) who presented to the ED 09/01 with fever, generalized weakness, and malaise x 9 days and admitted for acute liver failure and acute febrile illness. #Alcoholic hepatitis #Chronic alcohol dependence #Transaminitis #Direct hyperbilirubinemia #Hepatic steatosis Not encephalopathic, no RUQ TTP. BMI 37. AST 183, ALT 482, alk phos 201. Total bili 4.9, direct bili. hgb 12.7, plt 129. Coags WNL. Acetaminophen level WNL. HIV negative. Hepatitis panel non reactive. No evidence of biliary obstruction (prelim read) Patient's labs indicate a mixed cholestatic (direct hyperbilirubinemia) and hepatocellular pattern (ALT > AST) DDx: sepsis-associated cholestasis, drug-induced liver injury (amoxicillin for acute otitis media), viral (EBV/CMV), autoimmune Dx: -09/01 CTAP showed hepatosplenomegaly and multiple small abdominal, pelvic and mesenteric lymph nodes, possibly suggestive of early Hodgkin's disease or non- Hodgkin's lymphoma, (IR recommends 3-month follow-up CT chest abdomen and pelvis post intravenous contrast) -09/02 liver US showed significant hepatomegaly and fatty infiltration -Pending EBV and CMV Ab, ANTIONE, mitochondrial Ab, iron panel and ferritin s uggestive of ACD, retic count, LDH 307, ceruloplasmin -Lipid panel showed triglycerides 228, <10 HDL, A1C 5.7, TSH 1.01 Rx: -Consulted GI, appreciate recs #SIRS criteria Febrile T max 102.8, tachycardic 130 (improved with IVF). Lactic WNL. Procal 0.53. UA negative for UTI. CXR unremarkable. HIV negative. Hepatitis panel nonreactive CT a/p w/o contrast showed mesenteric, retroperitoneal, and portal hepatic lymphadenopathy Given 2L NS and ceftriaxone 1 g IV in ED No source of infection identified at this time (no meningeal signs either) Dx: - 09/01 blood Cx ordered, showed 2/2 [id number] - STI panel ordered, negative for chlamydia, gonorrhea, and trichomonas Rx: - Tylenol PO PRN #Abdominopelvic and mesenteric lymphadenopathy #c/f lymphoma Dx: -09/01 CTAP showed hepatosplenomegaly and multiple small abdominal, pelvic and mesenteric lymph nodes, possibly suggestive of early Hodgkin's disease or non- Hodgkin's lymphoma, (Oncology requested CT-guided biopsy of abdominal node but IR believes the nodes are too small for this and recommends 3-month follow-up CT chest abdomen and pelvis post intravenous contrast) #Polysubstance use disorder #Alcohol use disorder Patient reported cocaine use and is also documented to have previous methamphetamine use He also reports drinking 30 alcoholic beverages per week and that his last drink was on 08/23 UDS this admission was negative for alcohol Rx: -CIWA protocol -PO folic acid 1 mg twice daily -PO thiamine 100 mg twice daily #Hyponatremia (resolved) On admit Na 128 Now up-trended to 135 on 09/02, resolved Plan: -Fluid restriction of 1500 mL/day -CTM with daily CMP #Normocytic anemia On admit hgb 12.7, HCT 35.8 No active s/sx bleed Dx: -Iron panel as above Rx: - CTM with daily CBC #Thrombocytopenia (improving) On admit plt 129 i/s/o acute liver failure Now 150 on 09/02 Plan: - CTM with daily CBC - Management of acute liver failure as above Hospital Management: Disposition: Admitted to med/tele for workup and management of acute liver failure and continuing febrile episodes Diet: Low Fat GI Prophylaxis: Not indicated Bowel Prophylaxis: None DVT Prophylaxis: Heparin CODE STATUS: Full Code I have examined the patient and conferred with my attending, Dr. Waters, and my senior resident, Dr. Morales, regarding them. Jason Alva DO PGY-1 Internal Medicine Attending Provider Attestation/Addendum I have seen and examined the patient. I was physically present for the allison portions of the services provided including history, physical exam, diagnosis, treatment plans and orders. I agree with assessment and plan of care as documented by residents. Even though this this note was carefully revised there may still be minor errors in distribution spec due to voice recognition software. Gustavo Waters MD
[2025-09-03 10:45] LABS: Chlamydia trachomatis PCR Negative (Not Detect); Neisseria Gonorrhoeae DNA PCR Negative (Not Detect); Trichomonas Negative (Negative)
[2025-09-03 13:07] LABS: Path Review Blood Smear Sent to Pathologist
[2025-09-03 14:18] LABS: Cocci Serology, IgM Negative (Negative)
--- NOTE | 2025-09-03 15:03 | PD.ONCCONS ---
HPI Data of Consult Requesting Physician: Gustavo Waters MD Primary Care Provider: Geoff Mccarty MD Consult Narrative Reason for consult: Suspected malignancy abdomen pelvic region History of present illness: Patient is a 24-year-old male admitted with fever weakness and malaise, admitting to a heavy drinking prior to admission and also history of cocaine and meth use. Admission labs 09/01/2025 WBC 5.5 hemoglobin 12.7 platelets 1 29,000. LFTs including bilirubin AST ALT alk phos and LDH were all significantly elevated. Tumor marker AFP was not elevated. Abdomen pelvis CT 09/01/2025 revealed multiple small abdominal pelvic and mesenteric lymph nodes suggestive of possible early lymphoma. There was also hepatosplenomegaly, with liver ultrasound showing contracted gallbladder , and fatty infiltration of the liver. Evaluated by Dr. Kwong, GI specialist, who recommended workup for chronic active hepatitis along with abstinence from alcohol and polysubstance use. Possible biopsy recommended of aubree nodes. Patient states that he has had fever and night sweats but not significant weight loss. Patient now referred for oncological consultation. cc:: cc: Gustavo Waters MD Past Medical History Past Medical History Comments PMH COMMENT: History of polysubstance use disorder alcohol cocaine meth Meds Home Medications and Allergies Home Medications ?Medication ?Instructions ?Recorded ?Confirmed ?Type No Known Home Medications 04/09/23 09/02/25 History Allergies Allergy/AdvReac Type Severity Reaction Status Date / Time No Known Allergies Allergy Verified 09/01/25 19:43 Exam Vital Signs Temp Pulse Resp BP Pulse Ox O2 Del Method 98.2 F 106 H 16 110/72 95 Room Air 09/03/25 11:33 09/03/25 11:33 09/03/25 11:33 09/03/25 11:33 09/03/25 11:33 09/03/25 11:33 Narrative Exam Appears comfortable this p.m. No icterus. Results Labs 09/03/25 05:07 09/03/25 05:07 Labs: Short CBC 09/03/25 Range/Units 05:07 WBC 5.2 (3.8-10.6) Thou/mm3 Hgb 11.5 L (13.5-16.0) g/dL Hct 33.1 L (41.0-53.0) % Plt Count 192 D (140-440) Thou/mm3 BMP 09/03/25 05:07 Sodium 131 L Potassium 3.8 D Chloride 99 Carbon Dioxide 22.0 BUN 5 L Creatinine 0.6 Glucose 102 Calcium 8.2 L Liver Function 09/03/25 Range/Units 05:07 Total Bilirubin 3.2 H (0.3-1.2) mg/dL AST 101 H (0-34) U/L ALT 299 H (10-49) U/L Alkaline Phosphatase 146 H (46-116) U/L Albumin 3.7 (3.5-5.0) gm/dL Assessment and Plan Additional Assessment & Plan Additional Plan: 1. Admitted with considerably elevated LFTs and history of polysubstance use disorder 2. Multiple abdominal pelvic and mesenteric lymphadenopathy noted on CT. 3. Interventional radiologist Dr. Higgins feels that while small that one of the abdominal lymph nodes can be biopsied to diagnose possible malignancy. Spoke with Dr. Alva regarding this order 4. Patient informed about the need for [facility] me for follow-up regarding the results of these and other tests.
--- NOTE | 2025-09-03 20:33 | PD.IMPROG ---
Documentation for date of: 09/03/25 Subjective Subjective Interval history: Patient evaluated oncology consult appreciated CT-guided biopsy of one of the lymph nodes By IR hopefully tomorrow Exam Vital Signs Temp Pulse Resp BP Pulse Ox O2 Del Method 101.0 F H 101 H 16 113/60 95 Room Air 09/03/25 18:25 09/03/25 16:00 09/03/25 15:34 09/03/25 15:34 09/03/25 15:34 09/03/25 15:34 Objective Labs 09/03/25 05:07 09/03/25 05:07 Labs: Laboratory Results - last 24 hr 09/02/25 09/02/25 09/03/25 07:25 15:15 05:07 WBC 5.2 RBC 3.71 L Hgb 11.5 L Hct 33.1 L MCV 89 MCH 31.0 MCHC 34.7 RDW Std Deviation 41.3 Plt Count 192 D Neut % (Auto) 71 Lymph % (Auto) 17 [place] % (Auto) 9 Eos % (Auto) 3 Baso % (Auto) 0 Neut # (Auto) 3.7 Lymph # (Auto) 0.9 L [place] # (Auto) 0.5 Eos # (Auto) 0.1 Baso # (Auto) 0.0 Immature Gran # (Auto) 0.03 H Absolute Nucleated RBC 0.00 Immature Gran % 1 H Nucleated RBC % 0 Smear Path Review Sent to Pathologist Sodium 131 L Potassium 3.8 D Chloride 99 Carbon Dioxide 22.0 Anion Gap 10 BUN 5 L Creatinine 0.6 Estim Creat Clear Calc 228.5 eGFR > 60 BUN/Creatinine Ratio 8 L Glucose [address] Glu mg/dL 117 Hemoglobin A1c 5.7 Calculated Osmolality 259 L Calcium 8.2 L Corrected Calcium 8.4 L Phosphorus 2.3 L Magnesium 2.1 Total Bilirubin 3.2 H AST 101 H ALT 299 H Alkaline Phosphatase 146 H Total Protein 5.9 Albumin 3.7 Globulin 2.2 L Albumin/Globulin Ratio 1.7 Lipase 44 Tumor Marker AFP < 1.30 Chlam trachomat DNA PCR Negative Coccidioides IgM Ab Negative N.gonorrhoeae DNA (PCR) Negative Trichomonas DNA Probe Negative Impressions Impression: Improving LFTs Intra-abdominal lymphadenopathy Recommend CT-guided biopsy of one of the lymph nodes accessible to the IR Assessment & Plan A&P Narrative 1. Admitted with considerably elevated LFTs and history of polysubstance use disorder 2. Multiple abdominal pelvic and mesenteric lymphadenopathy noted on CT. 3. Interventional radiologist Dr. Higgins feels that while small that one of the abdominal lymph nodes can be biopsied to diagnose possible malignancy. Spoke with Dr. Alva regarding this order 4. Patient informed about the need for referral from the [facility] to see me for follow-up regarding the results of these and other tests. Time Spent With Patient Time: Total time spent is greater than 50% in coordination of care (as documented) at patient's floor/unit and/or counseling patient:
[2025-09-04] VITALS (11 sets, daily range): BP systolic 99–133; BP diastolic 70–78; PULSE 80–115; RESP 18–29; TEMP 36.4–38.2; O2SAT 93–99
[2025-09-04] MEDS: ACETAMINOPHEN 325 MG TABLET 650 MG PO (00:41)
[2025-09-04 05:42] LABS: Basophils # (Auto) 0.0 Thou/mm3 (0.0-0.2); Basophils % (Auto) 1 % (0-2.5); Eosinophils # (Auto) 0.2 Thou/mm3 (0.0-0.5); Eosinophils % (Auto) 4 % (0-10); Hematocrit 35.6 % (41.0-53.0); Hemoglobin 12.0 g/dL (13.5-16.0); Immature Granulocytes Auto 0.04 Thou/mm3 (0.00-0.00); Lymphocytes # (Auto) 1.2 Thou/mm3 (1.0-4.8); Lymphocytes % (Auto) 25 % (10-50); Mean Corpuscular HGB Conc 33.7 g/dl (31.0-37.0); Mean Corpuscular Hemoglobin 30.9 pg (25.0-35.0); Mean Corpuscular Volume 92 fL (80-100); Monocytes # (Auto) 0.5 Thou/mm3 (0.0-0.8); Monocytes % (Auto) 10 % (0-12); Neutrophils # (Auto) 2.9 Thou/mm3 (1.8-7.7); Neutrophils % (Auto) 60 % (37-80); Nucleated Red Blood Cell # 0.00 Thou/mm3 (0.00-0.00); Nucleated Red Blood Cell % 0 /100 WBC (0); Platelet Count 236 Thou/mm3 (140-440); RDW Standard Deviation 42.0 fL (35.1-43.9); Red Blood Count 3.88 Miln/mm3 (4.50-5.90); White Blood Count 4.8 Thou/mm3 (3.8-10.6)
[2025-09-04 06:21] LABS: Alanine Aminotransferase 283 U/L (10-49); Albumin, Serum 3.9 gm/dL (3.5-5.0); Albumin/Globulin Ratio 1.7 (1.2-2.2); Alkaline Phosphatase 150 U/L (46-116); Anion Gap 11 (7-16); Aspartate Amino Transferase 123 U/L (0-34); BUN/Creatinine Ratio 9 Ratio (12-20); Bilirubin,Total 2.3 mg/dL (0.3-1.2); Blood Urea Nitrogen 6 mg/dL (9-23); Calcium 8.5 mg/dL (8.3-10.6); Calcium (Corrected) 8.6 mg/dL (8.5-10.1); Carbon Dioxide 24.5 mMol/L (20.0-31.0); Chloride 101 mMol/L (98-107); Creatinine (Component) 0.7 mg/dL (0.6-1.3); Estimated Creatinine Clearance 195.9 mL/min (>60); Globulin 2.3 gm/dL (2.3-3.5); Glucose 98 mg/dL (74-106); Magnesium 2.3 mg/dL (1.6-2.6); Osmolality,Calculated 269 (275-295); Phosphorous 3.5 mg/dL (2.4-5.1); Potassium 3.9 mMol/L (3.4-5.1); Sodium 136 mMol/L (136-145); Total Protein 6.2 gm/dL (5.7-8.2); eGFR > 60 See Note
--- NOTE | 2025-09-04 07:08 | ECHO_ITS ---
Patient Info Name: Barak Barbosa Age: 24 years : 2000 Gender: Male Ht: 170 cm Wt: 112 kg BSA: 2.35 m2 BP: 99 / 70 mmHg HR: 99 bpm Heart Rhythm: Sinus Rhythm Exam Date: 09/04/2025 7:51 AM Admit Date: 09/02/2025 Site: [facility] Room Number: 371 Patient Status: I Technical Quality: Good Exam Type: CA echo doppler complete Chemist Proteins: Melody Powell Ordering Physician: Ashly Ryan Study Info Indications fever of unknown source, rule out endocarditis - Primary Location: [id number] Left Ventricular Outflow Tract Name Value Normal LVOT 2D LVOT Diameter 2.0 cm LVOT Doppler LVOT Peak Velocity 123 cm/s LVOT Mean Gradient 4 mmHg LVOT VTI 23 cm LVOT VTI/AV VTI Ratio 1.1 LVOT Stroke Volume 72 ml Pulmonic Valve Name Value Normal PV Doppler PV Peak Velocity 106 cm/s PV Regurgitation Doppler MD Peak End Diastolic Velocity 114 cm/s Mitral Valve Name Value Normal MV Doppler MV Decel [place] 801 cm/s2 MV PHT 33 ms MV Area (PHT) 6.7 cm2 4.0-5.0 MV Diastolic Function MV E Peak Velocity 90 cm/s MV A Peak Velocity 71 cm/s MV E/A 1.3 MV Annular TDI MV Septal e' Velocity 6.5 cm/s MV E/e' (Septal) 13.8 MV Lateral e' Velocity 6.4 cm/s MV E/e' (Lateral) 14.0 MV e' Average 6.48 cm/s MV E/e' (Average) 13.9 Tricuspid Valve Name Value Normal TV Regurgitation Doppler TR Peak Velocity 145 cm/s Estimated PAP/RSVP RA Pressure 3 mmHg <=5 PA Systolic Pressure 11 mmHg <36 RV Systolic Pressure 11 mmHg <36 Aortic Valve Name Value Normal AV 2D/MM AV Cusp Sep (MM) 1.3 cm AV Doppler AV Peak Velocity 131 cm/s AV Mean Gradient 4 mmHg AV VTI 21 cm AV Area (Cont Eq VTI) 3.4 cm2 >=3.0 AV Area (Cont Eq Guilherme) 2.9 cm2 AV DI (Guilherme) 0.94 AV Regurgitation 2D LVOT Area 3.1 cm2 Ventricles Name Value Normal LV Dimensions 2D/MM IVS Diastolic Thickness (2D) 1.1 cm 0.6-1.0 LVID Diastole (2D) 4.4 cm 4.2-5.8 LVIW Diastolic Thickness (2D) 1.3 cm 0.6-1.0 LVID Systole (2D) 2.7 cm 2.5-4.0 LVOT Diameter 2.0 cm LV Mass (2D Cubed) 191.33 g 88.00-224.00 LV Mass Index (2D Cubed) 82 g/m2 49-115 Relative Wall Thickness (2D) 0.59 <=0.42 IVS/LVIW Diastolic Thickness (2D) 0.85 0.00-1.50 LV Fractional Shortening/Ejection Fraction 2D/MM LV Fractional Shortening (2D) 39 % 25-43 LV EF (2D Teichholz) 69 % Atria Name Value Normal LA Dimensions LA Volume (4C A-L) 37 ml LA Volume (BP A-L) 36 ml Left Ventricle Left ventricular chamber dimension is normal. Left ventricular systolic function is normal with visually estimated ejection fraction of 60-65%. There is normal geometry noted in the left ventricle. Left ventricular segmental wall motion is normal. The left ventricular diastolic function is normal. Right Ventricle Right ventricular chamber dimension is normal. Right ventricular systolic function is normal. Left Atrium Left atrial chamber dimension is normal. Right Atrium Right atrial chamber dimension is normal. Aortic Valve The aortic valve is trileaflet. There is no aortic valve sclerosis. There is no aortic valve stenosis with a peak velocity of 131 cm/s, mean gradient of 4 mmHg, and aortic valve area of 3.4 cm2. There is no aortic valve regurgitation. Pulmonic Valve The pulmonic valve is normal. There is no pulmonic valve stenosis. There is no pulmonic regurgitation. Mitral Valve The mitral valve has normal leaflets. There is no mitral valve stenosis. There is trace mitral valve regurgitation. Tricuspid Valve The tricuspid valve leaflets are normal. There is no tricuspid valve stenosis. There is trace tricuspid valve regurgitation. No pulmonary hypertension, estimated pulmonary arterial systolic pressure is 11 mmHg and systemic blood pressure of 99 mmHg in systole. Pericardium/Pleural The pericardium appears normal. There is no pericardial effusion. No pleural effusion visualized. Inferior Vena Cava Normal inferior vena cava with >50% collapse upon inspiration consistent with normal right atrial pressure, 3 mmHg. Aorta The aortic measurements are indexed to age and body surface area. The aortic root at the sinus of Valsalva is not well visualized. The prox ascending aorta is not well visualized. Summary 1. Left ventricle size is normal and systolic function is normal. Visually estimated ejection fraction is 60-65%. The diastolic function is normal. 2. Right ventricle size is normal and systolic function is normal. Estimated PASP is 11 mmHg. No pulmonary hypertension. 3. There is trace mitral regurgitation. 4. There is tricuspid trace regurgitation. 5. Normal IVC with estimated RA pressure 3 mmHg. Report Signatures Finalized by Bossman Ramirez on 09/09/2025 01:29 PM
[2025-09-04 08:31] LABS: C-Reactive Protein 1.6 mg/dL (0.0-0.9); Procalcitonin 0.38 ng/ml (0.0-0.49)
[2025-09-04 09:01] LABS: Sed Rate (ESR) 26 mm/hr (0-15)
--- NOTE | 2025-09-04 09:48 | ESPR_ITS ---
<Statement entered by Ruel Morales MD - 09/04/25 21:02> I saw and examined patient personally and supervised PGY 1 resident, Dr. Alva with formulating a management plan. I agree with the documentation with the exceptions as listed below. Mr. Barbosa is a 24 y/o male with PMH of polysubstance use disorder (EtOH, cocaine, meth) who presented to the ED 09/01 with fever, generalized weakness, and malaise x 9 days and admitted for acute liver failure and acute febrile illness. Problem list: 1. Alcoholic hepatitis 2. Transaminitis 3. Hyperbilirubinemia?improving 4. Abdominal and pelvic lymphadenopathy 5. Fever of unknown origin 6. Chronic alcohol dependence 7. Normocytic anemia 8. Alcoholic liver disease Patient's hyperbilirubinemia continues to improve, however his transaminitis is worsening. He also continues to spike fevers daily. Dr. Chopra and Dr. Curtis radiation oncologist was consulted for possible abdominal lymph node biopsy, however he deemed these too small for intervention. He will have to follow-up as outpatient for interval CT scan in 3 months. CRP and ESR were mildly elevated at 26 and 1.6 respectively. Rest of inflammatory markers were negative. His hepatitis and HIV serology were also negative. Rest of workup for autoimmune hepatitis currently pending. Transthoracic echocardiogram and repeat blood cultures were ordered to rule out infective endocarditis. Infectious disease, Dr Roger was consulted. He said most likely cause of fevers possibly linked to his abdominal lymphadenopathy. If he continues to spike will need workup for cat scratch disease as he does have exposure to cats. Plan of care discussed with Attending Dr. Jt Morales MD PGY 2 Disclaimer: This note was dictated by speech recognition. Minor errors in back grinder may be present due to voice recognition software. Documentation for date of: 09/04/25 Subjective Subjective Interval history: No overnight events. Patient was examined at bedside; they appear A&Ox3 and in NAD. Vitals/labs today significant for HR 100, RR 23, Temp 100.8 at 00:41 (now 99.6), TBili 3.2->2.3, AST 101->123, ALT 299->283, ALP 146->150. ESR was elevated at 26 and CRP was elevated at 1.6 but procalcitonin was WNL at 0.38. Physical exam remains unchanged from day prior. Patient continues to spike fevers of mysterious etiology without concomitant leukocytosis or identifiable source of infection. A [place] screen was ordered which came back negative but all other lab work-up results remain pending. Patient is noted to have a systolic murmur so an echocardiogram and repeat BCxs have been ordered to rule out any infective endocarditis. ID was also consulted and suggests that it could be malignancy rather than any infectious cause and recommends Naprosyn if febrile episodes continue. Exam Vital Signs Temp Pulse Resp BP Pulse Ox O2 Del Method 99.6 F 100 23 H 111/71 93 L Room Air 09/04/25 07:48 09/04/25 07:48 09/04/25 07:48 09/04/25 07:48 09/04/25 07:48 09/04/25 07:48 Narrative Exam General: No acute distress, well nourished Eye: Some scleral icterus. PERRL, EOMI, normal conjunctiva, HEENT: Normocephalic, atraumatic, normal hearing, dry oral mucosa Neck: Supple, non-tender, no JVD, no lymphadenopathy Lungs: Clear to auscultation bilaterally, non-labored respirations, symmetric chest rise, no use of accessory muscles Heart: Normal S1 and S2, no S3 or S4 appreciated. Normal rate and regular rhythm, slight early systolic murmur heard at midsternal 4th and 5th ribs. Peripheral pulses intact bilaterally, capillary refill brisk distally Abdomen: Diffuse abdominal rash no longer present. Soft, non-distended, mild TTP RLQ normal bowel sounds. No guarding or rebound tenderness. Musculoskeletal: Normal range of motion and strength, no tenderness or swelling Skin: Skin is warm, dry, no rashes or lesions. Neurologic: Alert, awake and oriented x3. CN II-XII grossly intact. No focal neuro deficits. No signs of meningeal irritation noted. Psychiatric: Cooperative, appropriate mood and affect Objective Labs 09/05/25 05:24 09/05/25 05:24 Labs: Laboratory Results - last 24 hr 09/02/25 09/03/25 09/04/25 15:15 05:07 04:50 WBC 4.8 RBC 3.88 L Hgb 12.0 L Hct 35.6 L MCV 92 MCH 30.9 MCHC 33.7 RDW Std Deviation 42.0 Plt Count 236 D Neut % (Auto) 60 Lymph % (Auto) 25 [place] % (Auto) 10 Eos % (Auto) 4 Baso % (Auto) 1 Neut # (Auto) 2.9 Lymph # (Auto) 1.2 [place] # (Auto) 0.5 Eos # (Auto) 0.2 Baso # (Auto) 0.0 Immature Gran # (Auto) 0.04 H Absolute Nucleated RBC 0.00 Immature Gran % 1 H Nucleated RBC % 0 Smear Path Review Sent to Pathologist ESR 26 H Sodium 136 Potassium 3.9 Chloride 101 Carbon Dioxide 24.5 Anion Gap 11 BUN 6 L Creatinine 0.7 Estim Creat Clear Calc 195.9 eGFR > 60 BUN/Creatinine Ratio 9 L Glucose 98 Calculated Osmolality 269 L Calcium 8.5 Corrected Calcium 8.6 Phosphorus 3.5 Magnesium 2.3 Total Bilirubin 2.3 H D AST 123 H ALT 283 H Alkaline Phosphatase 150 H C-Reactive Prot, Quant 1.6 H Total Protein 6.2 Albumin 3.9 Globulin 2.3 Albumin/Globulin Ratio 1.7 Procalcitonin 0.38 Chlam trachomat DNA PCR Negative Coccidioides IgM Ab Negative N.gonorrhoeae DNA (PCR) Negative Trichomonas DNA Probe Negative Quality Measures Quality Measures sepsis Current suspected stage: ruled out Possible source: GI tract/intra- abdominal Blood cultures ordered: yes Antibiotic ordered: No Assessment & Plan Assessment Current Active Medications: Generic Name Dose Route Start Last Admin Trade Name Freq PRN Reason Stop Dose Admin Acetaminophen 650 mg 09/02/25 04:35 09/04/25 00:41 Acetaminophen 325 Mg Tablet PO 10/02/25 04:34 650 mg Q6H PRN Administration Fever >100.3 Acetaminophen 650 mg 09/02/25 04:35 Acetaminophen 325 Mg Tablet PO 10/02/25 04:34 Q6H PRN PAIN SCALE 1-3 (mild Folic Acid 1 mg 09/02/25 09:00 09/03/25 21:05 Folic Acid 1 Mg Tablet PO 09/07/25 08:59 1 mg BID JOHN Administration Heparin Sodium (Porcine) 5,000 unit 09/02/25 06:00 09/04/25 05:30 Heparin Sod Inj 5000 Unit/Ml Vial SC 09/16/25 05:59 Not Given Q8HR JOHN Lorazepam 0.5 mg 09/02/25 08:25 Lorazepam 0.5 Mg Tablet PO 09/07/25 08:24 Q4HR PRN CIWA Score 2-6 Lorazepam 1 mg 09/02/25 08:25 Lorazepam 0.5 Mg Tablet PO 09/07/25 08:24 Q4HR PRN CIWA SCORE 7-11 Lorazepam 2 mg 09/02/25 08:25 Lorazepam 0.5 Mg Tablet PO 09/07/25 08:24 Q4HR PRN CIWA SCORE 12-15 Ondansetron HCl 4 mg 09/02/25 04:35 Ondansetron Inj 2 Mg/Ml Inj 2 Ml IVP 10/02/25 04:34 Q6H PRN NAUSEA OR VOMITING Protocol Thiamine HCl 100 mg 09/03/25 09:00 09/03/25 21:05 Thiamine 100 Mg Tablet PO 09/08/25 08:59 100 mg BID JOHN Administration Plan Mr. Barbosa is a 24 y/o male with PMH of polysubstance use disorder (EtOH, cocaine, meth) who presented to the ED 09/01 with fever, generalized weakness, and malaise x 9 days and admitted for acute liver failure and acute febrile illness. #Alcoholic hepatitis #Chronic alcohol dependence #Transaminitis #Direct hyperbilirubinemia #Hepatic steatosis Not encephalopathic, no RUQ TTP. BMI 37. AST 183, ALT 482, alk phos 201. Total bili 4.9, direct bili. hgb 12.7, plt 129. Coags WNL. Acetaminophen level WNL. HIV negative. Hepatitis panel non reactive. No evidence of biliary obstruction (prelim read) Patient's labs indicate a mixed cholestatic (direct hyperbilirubinemia) and hepatocellular pattern (ALT > AST) DDx: sepsis-associated cholestasis, drug-induced liver injury (amoxicillin for acute otitis media), viral (EBV/CMV), autoimmune Dx: -09/01 CTAP showed hepatosplenomegaly and multiple small abdominal, pelvic and mesenteric lymph nodes, possibly suggestive of early Hodgkin's disease or non- Hodgkin's lymphoma, (Oncology requested CT-guided biopsy of abdominal node but IR believes the nodes are too small for this and recommends 3-month follow-up CT chest abdomen and pelvis post intravenous contrast) -09/02 liver US showed significant hepatomegaly and fatty infiltration -Pending EBV and CMV Ab, ANTIONE, mitochondrial Ab, iron panel and ferritin s uggestive of ACD, retic count, LDH 307, ceruloplasmin -Lipid panel showed triglycerides 228, <10 HDL, A1C 5.7, TSH 1.01 Rx: -Consulted GI, appreciate recs #Fever of unknown origin #Abdominopelvic and mesenteric lymphadenopathy #c/f lymphoma Patient continues to spike fevers of mysterious etiology without concomitant leukocytosis or identifiable source of infection Working diagnosis for underlying etiology is some type of malignancy, possibly lymphoma, given presence of abdominopelvic and mesenteric lymphadenopathy seen on 09/01 CTAP DDx: infective endocarditis, meningitis, other occult bacterial or viral infection, autoimmune etiology Dx: -Negative for chlamydia, gonorrhea, trichomonas, Cocci, hepatitis, HIV, [place] -09/04 repeat BCx ordered, showed ___ -09/04 echocardiogram ordered, showed ___ Rx: -ID consulted, believes etiology may be malignancy rather than an infectious cause and recommends Naprosyn if febrile episodes continue #SIRS criteria Febrile T max 102.8, tachycardic 130 (improved with IVF). Lactic WNL. Procal 0.53. UA negative for UTI. CXR unremarkable. HIV negative. Hepatitis panel nonreactive CT a/p w/o contrast showed mesenteric, retroperitoneal, and portal hepatic lymphadenopathy Given 2L NS and ceftriaxone 1 g IV in ED No source of infection identified at this time (no meningeal signs either) Dx: - 09/01 blood Cx ordered, showed 2/2 [id number] - STI panel ordered, negative for chlamydia, gonorrhea, and trichomonas Rx: - Tylenol PO PRN #Polysubstance use disorder #Alcohol use disorder Patient reported cocaine use and is also documented to have previous methamphetamine use He also reports drinking 30 alcoholic beverages per week and that his last drink was on 08/23 UDS this admission was negative for alcohol Rx: -CIWA protocol -PO folic acid 1 mg twice daily -PO thiamine 100 mg twice daily #Hyponatremia (resolved) On admit Na 128 Now up-trended to 135 on 09/02, resolved Plan: -Fluid restriction of 1500 mL/day -CTM with daily CMP #Normocytic anemia On admit hgb 12.7, HCT 35.8 No active s/sx bleed Dx: -Iron panel as above Rx: - CTM with daily CBC #Thrombocytopenia (improving) On admit plt 129 i/s/o acute liver failure Now 150 on 09/02 Plan: - CTM with daily CBC - Management of acute liver failure as above Hospital Management: Disposition: Admitted to med/tele for workup and management of acute liver failure and continuing febrile episodes Diet: Low Fat GI Prophylaxis: Not indicated Bowel Prophylaxis: None DVT Prophylaxis: Heparin CODE STATUS: Full Code I have examined the patient and conferred with my attending, Dr. Waters, and my senior resident, Dr. Morales, regarding them. Jason Alva DO PGY-1 Internal Medicine Attending Provider Attestation/Addendum I have seen and examined the patient. I was physically present for the allison portions of the services provided including history, physical exam, diagnosis, treatment plans and orders. I agree with assessment and plan of care as documented by residents. Even though this this note was carefully revised there may still be minor errors in back grinder due to voice recognition software. Gustavo Waters MD
[2025-09-04 10:58] LABS: Cocci Serology, IgG Negative (Negative)
--- NOTE | 2025-09-04 12:24 | PC.SS ---
SS follow up note; Patient is having Fevers, Patient is pending Echo and Repeat blood cultures. Patient will discharge home when medically cleared.
[2025-09-04] MEDS: HEPARIN SOD INJ 5000 UNIT/ML VIAL SC (13:47)
--- NOTE | 2025-09-04 15:21 | ESPR_ITS ---
Subjective Subjective Interval history: may have lisa CA. if so, little for us to do. hiv and hep c neg. Exam Vital Signs Temp Pulse Resp BP Pulse Ox O2 Del Method 98.5 F 80 29 H 115/70 95 Room Air 09/04/25 11:47 09/04/25 12:00 09/04/25 11:47 09/04/25 11:47 09/04/25 11:47 09/04/25 11:47 Narrative Exam benign exam. alert. no O2 needed. Objective - Internal Medicine Labs 09/04/25 04:50 09/04/25 04:50 Labs: Laboratory Results - last 24 hr 09/03/25 09/04/25 05:07 04:50 WBC 4.8 RBC 3.88 L Hgb 12.0 L Hct 35.6 L MCV 92 MCH 30.9 MCHC 33.7 RDW Std Deviation 42.0 Plt Count 236 D Neut % (Auto) 60 Lymph % (Auto) 25 [place] % (Auto) 10 Eos % (Auto) 4 Baso % (Auto) 1 Neut # (Auto) 2.9 Lymph # (Auto) 1.2 [place] # (Auto) 0.5 Eos # (Auto) 0.2 Baso # (Auto) 0.0 Immature Gran # (Auto) 0.04 H Absolute Nucleated RBC 0.00 Immature Gran % 1 H Nucleated RBC % 0 ESR 26 H Sodium 136 Potassium 3.9 Chloride 101 Carbon Dioxide 24.5 Anion Gap 11 BUN 6 L Creatinine 0.7 Estim Creat Clear Calc 195.9 eGFR > 60 BUN/Creatinine Ratio 9 L Glucose 98 Calculated Osmolality 269 L Calcium 8.5 Corrected Calcium 8.6 Phosphorus 3.5 Magnesium 2.3 Total Bilirubin 2.3 H D AST 123 H ALT 283 H Alkaline Phosphatase 150 H C-Reactive Prot, Quant 1.6 H Total Protein 6.2 Albumin 3.9 Globulin 2.3 Albumin/Globulin Ratio 1.7 Procalcitonin 0.38 Coccidioides IgG Ab Negative Assessment & Plan A&P Narrative fuo adenopathy. not biopsy able per radiology notes substance use hx. bc neg 09/01 but done again this am09/04 stay clean and sober ok for now abx if cx remain neg. will try naprosyn for the fever but if afebrile on that. you may want to repeat the imaging sooner than [address] will screen for csd with cat exposures but that is all he admits to Time Spent With Patient Time: Total time spent is greater than 50% in coordination of care (as documented) at patient's floor/unit and/or counseling patient:
[2025-09-04 15:51] LABS: Mono Screen Negative (Negative)
--- NOTE | 2025-09-04 18:59 | ESCONSULT_ITS ---
RE: KYLER VILLEDA : 2000 DATE OF CONSULTATION: 09/04/2025 REFERRING PHYSICIAN: Laisha Moreno MD. REASON FOR CONSULTATION: Fever of unknown origin with negative blood cultures on 09/01/2025 and multiple negative serologies. HISTORY OF PRESENT ILLNESS: The patient has prior negative serologies on file for numerous potential infectious organisms. He admits to some work at the local [employer] and has his daughter at home. He is not sexually active. Seems like he has always been a little bit heavy. He has had no surgery. He has had fever beginning about a week prior to admit and nausea, weight loss and weakness beginning a few days later. He is a fairly good historian. PHYSICAL EXAMINATION: On exam, patient is nonfocal. The patient looks alert and cooperative. Imaging studies are as noted. There is no striking findings on his examination. No adenopathy that is palpable. ALLERGIES: NONE KNOWN. IMMUNIZATIONS: Last tetanus is not known. He does not take a flu shot. He has not had COVID vaccine or pneumococcal vaccine. FAMILY HISTORY: Positive for diabetes, hypertension, and cancer. SOCIAL HISTORY: He lives at home with his daughter, works at the local [employer] and there is some substance use history, but no current tobacco use noted. Exam is benign. ASSESSMENT: Fever of unknown origin. RECOMMENDATIONS: If workup is negative for infection, patient may go home at your discretion and [facility]. He should avoid substances moving forward because of their potential for muddying the maciel. There is nothing for me to do if I see him. If his HIV and hepatitis C tests are negative, I will order a cat scratch disease test. If that is positive, he could be treated empirically with azithromycin. That works fairly well for that. DT: 15:44:20 TT: 18:20:00 Ref: [id number] - TID: [id number] MTDD
--- NOTE | 2025-09-04 20:41 | PD.IMPROG ---
Documentation for date of: 09/04/25 Subjective Subjective Interval history: Patient evaluated total bilirubin 2.3 AST ALT 129 and 283 and alk phos of 150 Exam Vital Signs Temp Pulse Resp BP Pulse Ox O2 Del Method 97.9 F 103 H 18 133/73 H 96 Room Air 09/04/25 16:00 09/04/25 16:00 09/04/25 16:00 09/04/25 16:00 09/04/25 16:00 09/04/25 16:00 Objective Labs 09/04/25 04:50 09/04/25 04:50 Labs: Laboratory Results - last 24 hr 09/03/25 09/04/25 05:07 04:50 WBC 4.8 RBC 3.88 L Hgb 12.0 L Hct 35.6 L MCV 92 MCH 30.9 MCHC 33.7 RDW Std Deviation 42.0 Plt Count 236 D Neut % (Auto) 60 Lymph % (Auto) 25 [place] % (Auto) 10 Eos % (Auto) 4 Baso % (Auto) 1 Neut # (Auto) 2.9 Lymph # (Auto) 1.2 [place] # (Auto) 0.5 Eos # (Auto) 0.2 Baso # (Auto) 0.0 Immature Gran # (Auto) 0.04 H Absolute Nucleated RBC 0.00 Immature Gran % 1 H Nucleated RBC % 0 ESR 26 H Sodium 136 Potassium 3.9 Chloride 101 Carbon Dioxide 24.5 Anion Gap 11 BUN 6 L Creatinine 0.7 Estim Creat Clear Calc 195.9 eGFR > 60 BUN/Creatinine Ratio 9 L Glucose 98 Calculated Osmolality 269 L Calcium 8.5 Corrected Calcium 8.6 Phosphorus 3.5 Magnesium 2.3 Total Bilirubin 2.3 H D AST 123 H ALT 283 H Alkaline Phosphatase 150 H C-Reactive Prot, Quant 1.6 H Total Protein 6.2 Albumin 3.9 Globulin 2.3 Albumin/Globulin Ratio 1.7 Procalcitonin 0.38 Coccidioides IgG Ab Negative Monoscreen Negative Impressions Impression: Abdominal and pelvic lymphadenopathy Fever of uncertain etiology Diagnostic dilemma as IR does not think one of the lymph nodes can be biopsied I will speak to the radiologist tomorrow morning myself Assessment & Plan A&P Narrative fuo adenopathy. not biopsy able per radiology notes substance use hx. bc neg 09/01 but done again this am09/04 stay clean and sober ok for now abx if cx remain neg. will try naprosyn for the fever but if afebrile on that. you may want to repeat the imaging sooner than [address] will screen for csd with cat exposures but that is all he admits to Time Spent With Patient Time: Total time spent is greater than 50% in coordination of care (as documented) at patient's floor/unit and/or counseling patient:
[2025-09-04] MEDS: FOLIC ACID 1 MG TABLET PO (21:13)
[2025-09-04] MEDS: THIAMINE 100 MG TABLET PO (21:13)
[2025-09-04] MEDS: NAPROXEN 250 MG TABLET PO (21:13)
[2025-09-05] VITALS (9 sets, daily range): BP systolic 100–133; BP diastolic 58–80; PULSE 79–111; RESP 13–26; TEMP 36.1–36.6; O2SAT 96–99
[2025-09-05 06:01] LABS: Misc Send Out* See Sep Rpt
[2025-09-05 06:20] LABS: Phosphorous 4.0 mg/dL (2.4-5.1)
[2025-09-05 06:37] LABS: Syphilis Nonreactive (Nonreactive)
[2025-09-05 08:16] LABS: Basophils # (Auto) 0.0 Thou/mm3 (0.0-0.2); Basophils % (Auto) 1 % (0-2.5); Eosinophils # (Auto) 0.2 Thou/mm3 (0.0-0.5); Eosinophils % (Auto) 4 % (0-10); Hematocrit 36.6 % (41.0-53.0); Hemoglobin 12.4 g/dL (13.5-16.0); Immature Granulocytes Auto 0.04 Thou/mm3 (0.00-0.00); Lymphocytes # (Auto) 1.7 Thou/mm3 (1.0-4.8); Lymphocytes % (Auto) 30 % (10-50); Mean Corpuscular HGB Conc 33.9 g/dl (31.0-37.0); Mean Corpuscular Hemoglobin 31.2 pg (25.0-35.0); Mean Corpuscular Volume 92 fL (80-100); Monocytes # (Auto) 0.6 Thou/mm3 (0.0-0.8); Monocytes % (Auto) 11 % (0-12); Neutrophils # (Auto) 3.1 Thou/mm3 (1.8-7.7); Neutrophils % (Auto) 54 % (37-80); Nucleated Red Blood Cell # 0.00 Thou/mm3 (0.00-0.00); Nucleated Red Blood Cell % 0 /100 WBC (0); Platelet Count 300 Thou/mm3 (140-440); RDW Standard Deviation 43.1 fL (35.1-43.9); Red Blood Count 3.98 Miln/mm3 (4.50-5.90); White Blood Count 5.7 Thou/mm3 (3.8-10.6)
[2025-09-05 08:30] LABS: Alanine Aminotransferase 257 U/L (10-49); Albumin, Serum 3.8 gm/dL (3.5-5.0); Albumin/Globulin Ratio 1.5 (1.2-2.2); Alkaline Phosphatase 143 U/L (46-116); Anion Gap 13 (7-16); Aspartate Amino Transferase 111 U/L (0-34); BUN/Creatinine Ratio 10 Ratio (12-20); Bilirubin,Total 1.6 mg/dL (0.3-1.2); Blood Urea Nitrogen 7 mg/dL (9-23); Calcium 8.8 mg/dL (8.3-10.6); Calcium (Corrected) 9.0 mg/dL (8.5-10.1); Carbon Dioxide 22.5 mMol/L (20.0-31.0); Chloride 104 mMol/L (98-107); Creatinine (Component) 0.7 mg/dL (0.6-1.3); Estimated Creatinine Clearance 195.9 mL/min (>60); Globulin 2.5 gm/dL (2.3-3.5); Glucose 101 mg/dL (74-106); Magnesium 2.4 mg/dL (1.6-2.6); Osmolality,Calculated 275 (275-295); Phosphorous 4.2 mg/dL (2.4-5.1); Potassium 4.3 mMol/L (3.4-5.1); Sodium 139 mMol/L (136-145); Total Protein 6.3 gm/dL (5.7-8.2); eGFR > 60 See Note
[2025-09-05] MEDS: AZITHROMYCIN 250 MG TABLET 500 MG PO (09:48)
[2025-09-05] MEDS: NAPROXEN 250 MG TABLET PO ×2 (09:48→20:23)
[2025-09-05] MEDS: THIAMINE 100 MG TABLET PO ×2 (09:49→20:24)
[2025-09-05] MEDS: FOLIC ACID 1 MG TABLET PO ×2 (09:49→20:24)
--- NOTE | 2025-09-05 11:24 | PD.RESPRO ---
Documentation for date of: 09/05/25 --------- Patient contiues to have pyrexia overnight. Infectious disease consulted and hepatitis panel negative and HIV negative. Negative cocci. US liver unremarkable. Infectious disease noted possible source cat scratch fever and labs ordered. Azithromycin 500 mg X 1 and 250 mg four additional times. Continue to monitor for pyrexia. Senior Resident Attestation: I have discussed the case with supervising physician and investigator internal revenue physician involved in the care of patient. I personally saw and examined patient and discussed the assessment and plan with the entire medical team, including attending. I agree with assessment and plan as documented below. - The patient's plan was discussed with attending Dr. Jt Ryan MD PGY2 Internal Medicine Subjective Subjective Interval history: Patient examined bedside, labs reviewed. Patient reports feeling much better. Reports no fever, less pain and weakness. Improved neck pain. ID: suspects cat scratch disease since HIV and hep panel negative, recommends starting azithromycin. Exam Vital Signs Temp Pulse Resp BP Pulse Ox O2 Del Method 97.1 F 95 26 H 123/77 96 Room Air 09/05/25 07:51 09/05/25 08:00 09/05/25 07:51 09/05/25 07:51 09/05/25 07:51 09/05/25 07:51 Narrative Exam General: No acute distress, well nourished Eye: Some scleral icterus. PERRL, EOMI, normal conjunctiva, HEENT: Normocephalic, atraumatic, normal hearing, dry oral mucosa Neck: Supple, non-tender, no JVD, no lymphadenopathy Lungs: Clear to auscultation bilaterally, non-labored respirations, symmetric chest rise, no use of accessory muscles Heart: Normal S1 and S2, no S3 or S4 appreciated. Normal rate and regular rhythm, slight early systolic murmur heard at midsternal 4th and 5th ribs. Peripheral pulses intact bilaterally, capillary refill brisk distally Abdomen: Diffuse abdominal rash no longer present. Soft, non-distended, NTTP normal bowel sounds. No guarding or rebound tenderness. Musculoskeletal: Normal range of motion and strength, no tenderness or swelling Skin: Skin is warm, dry, no rashes or lesions. Neurologic: Alert, awake and oriented x3. CN II-XII grossly intact. No focal neuro deficits. No signs of meningeal irritation noted. Psychiatric: Cooperative, appropriate mood and affect Objective Labs 09/06/25 05:17 09/06/25 05:17 Labs: Laboratory Results - last 24 hr 09/04/25 09/05/25 09/05/25 04:50 05:24 05:24 WBC 5.7 RBC 3.98 L Hgb 12.4 L Hct 36.6 L MCV 92 MCH 31.2 MCHC 33.9 RDW Std Deviation 43.1 Plt Count 300 D Neut % (Auto) 54 Lymph % (Auto) 30 [place] % (Auto) 11 Eos % (Auto) 4 Baso % (Auto) 1 Neut # (Auto) 3.1 Lymph # (Auto) 1.7 [place] # (Auto) 0.6 Eos # (Auto) 0.2 Baso # (Auto) 0.0 Immature Gran # (Auto) 0.04 H Absolute Nucleated RBC 0.00 Immature Gran % 1 H Nucleated RBC % 0 Sodium 139 Potassium 4.3 Chloride 104 Carbon Dioxide 22.5 Anion Gap 13 BUN 7 L Creatinine 0.7 Estim Creat Clear Calc 195.9 eGFR > 60 BUN/Creatinine Ratio 10 L Glucose 101 Calculated Osmolality 275 Calcium 8.8 Corrected Calcium 9.0 Phosphorus 4.0 4.2 Magnesium 2.4 Total Bilirubin 1.6 H D AST 111 H ALT 257 H Alkaline Phosphatase 143 H Total Protein 6.3 Albumin 3.8 Globulin 2.5 Albumin/Globulin Ratio 1.5 Syphilis Serology Nonreactive Monoscreen Negative Quality Measures Quality Measures sepsis Current suspected stage: ruled out Possible source: GI tract/intra-abdominal Blood cultures ordered: yes Antibiotic ordered: Yes Assessment & Plan Assessment Current Active Medications: Generic Name Dose Route Start Last Admin Trade Name Freq PRN Reason Stop Dose Admin Acetaminophen 650 mg 09/02/25 04:35 09/04/25 00:41 Acetaminophen 325 Mg Tablet PO 10/02/25 04:34 650 mg Q6H PRN Administration Fever >100.3 Acetaminophen 650 mg 09/02/25 04:35 Acetaminophen 325 Mg Tablet PO 10/02/25 04:34 Q6H PRN PAIN SCALE 1-3 (mild Azithromycin 250 mg 09/06/25 09:00 Azithromycin 250 Mg Tablet PO 09/13/25 08:59 QDAY JOHN Folic Acid 1 mg 09/02/25 09:00 09/05/25 09:49 Folic Acid 1 Mg Tablet PO 09/07/25 08:59 1 mg BID JOHN Administration Heparin Sodium (Porcine) 5,000 unit 09/02/25 06:00 09/05/25 05:05 Heparin Sod Inj 5000 Unit/Ml Vial SC 09/16/25 05:59 Not Given Q8HR JOHN Lorazepam 0.5 mg 09/02/25 08:25 Lorazepam 0.5 Mg Tablet PO 09/07/25 08:24 Q4HR PRN CIWA Score 2-6 Lorazepam 1 mg 09/02/25 08:25 Lorazepam 0.5 Mg Tablet PO 09/07/25 08:24 Q4HR PRN CIWA SCORE 7-11 Lorazepam 2 mg 09/02/25 08:25 Lorazepam 0.5 Mg Tablet PO 09/07/25 08:24 Q4HR PRN CIWA SCORE 12-15 Naproxen 250 mg 09/04/25 21:00 09/05/25 09:48 Naproxen 250 Mg Tablet PO 10/07/25 12:00 250 mg BID JOHN Administration Ondansetron HCl 4 mg 09/02/25 04:35 Ondansetron Inj 2 Mg/Ml Inj 2 Ml IVP 10/02/25 04:34 Q6H PRN NAUSEA OR VOMITING Protocol Thiamine HCl 100 mg 09/03/25 09:00 09/05/25 09:49 Thiamine 100 Mg Tablet PO 09/08/25 08:59 100 mg BID JOHN Administration Plan Mr. Barbosa is a 24 y/o male with PMH of polysubstance use disorder (EtOH, cocaine, meth) who presented to the ED 09/01 with fever, generalized weakness, and malaise x 9 days and admitted for acute liver failure and acute febrile illness. #Alcoholic hepatitis #Chronic alcohol dependence #Transaminitis #Direct hyperbilirubinemia #Hepatic steatosis Not encephalopathic, no RUQ TTP. BMI 37. AST 183, ALT 482, alk phos 201. Total bili 4.9, direct bili. hgb 12.7, plt 129. Coags WNL. Acetaminophen level WNL. HIV negative. Hepatitis panel non reactive. No evidence of biliary obstruction (prelim read) Patient's labs indicate a mixed cholestatic (direct hyperbilirubinemia) and hepatocellular pattern (ALT > AST) DDx: sepsis-associated cholestasis, drug-induced liver injury (amoxicillin for acute otitis media), viral (EBV/CMV), autoimmune Dx: -09/01 CTAP showed hepatosplenomegaly and multiple small abdominal, pelvic and mesenteric lymph nodes, possibly suggestive of early Hodgkin's disease or non-Hodgkin's lymphoma, (Oncology requested CT-guided biopsy of abdominal node but IR believes the nodes are too small for this and recommends 3-month follow-up CT chest abdomen and pelvis post intravenous contrast) -09/02 liver US showed significant hepatomegaly and fatty infiltration -Pending EBV and CMV Ab, ANTIONE, mitochondrial Ab, iron panel and ferritin suggestive of ACD, retic count, LDH 307, ceruloplasmin -Lipid panel showed triglycerides 228, <10 HDL, A1C 5.7, TSH 1.01 Rx: -Consulted GI, appreciate recs --> GI following up on lymph node biopsy. #Fever of unknown origin #Abdominopelvic and mesenteric lymphadenopathy #c/f lymphoma Patient continues to spike fevers of mysterious etiology without concomitant leukocytosis or identifiable source of infection Working diagnosis for underlying etiology is some type of malignancy, possibly lymphoma, given presence of abdominopelvic and mesenteric lymphadenopathy seen on 09/01 CTAP DDx: infective endocarditis, meningitis, other occult bacterial or viral infection, autoimmune etiology Dx: -Negative for chlamydia, gonorrhea, trichomonas, Cocci, hepatitis, HIV, Sheridan -09/04 repeat BCx ordered, showed ___ -09/04 echocardiogram ordered, showed ___ Rx: -ID consulted, believes etiology may be malignancy rather than an infectious cause and recommends Naprosyn if febrile episodes continue -ID FUP 09/05, investigating cat scratch disease. #SIRS criteria Febrile T max 102.8, tachycardic 130 (improved with IVF). Lactic WNL. Procal 0.53. UA negative for UTI. CXR unremarkable. HIV negative. Hepatitis panel nonreactive CT a/p w/o contrast showed mesenteric, retroperitoneal, and portal hepatic lymphadenopathy Given 2L NS and ceftriaxone 1 g IV in ED No source of infection identified at this time (no meningeal signs either) Dx: - 09/01 blood Cx ordered, showed 2/2 [id number] - STI panel ordered, negative for chlamydia, gonorrhea, and trichomonas Rx: - Tylenol PO PRN #Polysubstance use disorder #Alcohol use disorder Patient reported cocaine use and is also documented to have previous methamphetamine use He also reports drinking 30 alcoholic beverages per week and that his last drink was on 08/23 UDS this admission was negative for alcohol Rx: -CIWA protocol -PO folic acid 1 mg twice daily -PO thiamine 100 mg twice daily #Hyponatremia (resolved) On admit Na 128 Now up-trended to 135 on 09/02, resolved Plan: -Fluid restriction of 1500 mL/day -CTM with daily CMP #Normocytic anemia On admit hgb 12.7, HCT 35.8 No active s/sx bleed Dx: -Iron panel as above Rx: - CTM with daily CBC #Thrombocytopenia (improving) On admit plt 129 i/s/o acute liver failure Now 150 on 09/02 Plan: - CTM with daily CBC - Management of acute liver failure as above Hospital Management: Disposition: Admitted to [facility]/tele for workup and management of acute liver failure and continuing febrile episodes Diet: Low Fat GI Prophylaxis: Not indicated Bowel Prophylaxis: None DVT Prophylaxis: Heparin CODE STATUS: Full Code I have examined the patient and conferred with my attending, Dr. Waters, and my senior resident, Dr. Ryan, regarding them. Mushtaq Peralta MD PGY-1 Internal Medicine Attending Provider Attestation/Addendum I have seen and examined the patient. I was physically present for the allison portions of the services provided including history, physical exam, diagnosis, treatment plans and orders. I agree with assessment and plan of care as documented by residents. Even though this this note was carefully revised there may still be minor errors in engineer steam due to voice recognition software. Gustavo Waters MD
--- NOTE | 2025-09-05 14:18 | PC.SS ---
Rounding: Pending ECHO and Blood Cults DC plan home
--- NOTE | 2025-09-05 20:33 | ESPR_ITS ---
Documentation for date of: 09/05/25 Subjective Subjective Interval history: Improving LFTs with total bilirubin 1.6 AST ALT down to 111 and 251 and alk phos [address] WADE will reach out to him again Exam Vital Signs Temp Pulse Resp BP Pulse Ox O2 Del Method 97.0 F 101 H 18 119/75 99 Room Air 09/05/25 16:00 09/05/25 16:00 09/05/25 16:00 09/05/25 16:00 09/05/25 16:00 09/05/25 11:26 Objective Labs 09/05/25 05:24 09/05/25 05:24 Labs: Laboratory Results - last 24 hr 09/05/25 09/05/25 05:24 05:24 WBC 5.7 RBC 3.98 L Hgb 12.4 L Hct 36.6 L MCV 92 MCH 31.2 MCHC 33.9 RDW Std Deviation 43.1 Plt Count 300 D Neut % (Auto) 54 Lymph % (Auto) 30 [place] % (Auto) 11 Eos % (Auto) 4 Baso % (Auto) 1 Neut # (Auto) 3.1 Lymph # (Auto) 1.7 [place] # (Auto) 0.6 Eos # (Auto) 0.2 Baso # (Auto) 0.0 Immature Gran # (Auto) 0.04 H Absolute Nucleated RBC 0.00 Immature Gran % 1 H Nucleated RBC % 0 Sodium 139 Potassium 4.3 Chloride 104 Carbon Dioxide 22.5 Anion Gap 13 BUN 7 L Creatinine 0.7 Estim Creat Clear Calc 195.9 eGFR > 60 BUN/Creatinine Ratio 10 L Glucose 101 Calculated Osmolality 275 Calcium 8.8 Corrected Calcium 9.0 Phosphorus 4.0 4.2 Magnesium 2.4 Total Bilirubin 1.6 H D AST 111 H ALT 257 H Alkaline Phosphatase 143 H Total Protein 6.3 Albumin 3.8 Globulin 2.5 Albumin/Globulin Ratio 1.5 Syphilis Serology Nonreactive Impressions Impression: Fever abnormal LFTs intra-abdominal lymphadenopathy small lymph nodes Will reach out to IR again Assessment & Plan A&P Narrative fuo adenopathy. not biopsy able per radiology notes substance use hx. bc neg 09/01 but done again this am09/04 stay clean and sober ok for now abx if cx remain neg. will try naprosyn for the fever but if afebrile on that. you may want to repeat the imaging sooner than [address] will screen for csd with cat exposures but that is all he admits to Time Spent With Patient Time: Total time spent is greater than 50% in coordination of care (as documented) at patient's floor/unit and/or counseling patient:
[2025-09-06] VITALS: BP 129/93; PULSE 84; RESP 18; TEMP 36.6; O2SAT 97
[2025-09-06 04:00] VITALS: BP 116/77; PULSE 90; PULSE 92; RESP 20; TEMP 36.3; O2SAT 99
[2025-09-06 06:11] LABS: Basophils # (Auto) 0.1 Thou/mm3 (0.0-0.2); Basophils % (Auto) 1 % (0-2.5); Eosinophils # (Auto) 0.2 Thou/mm3 (0.0-0.5); Eosinophils % (Auto) 4 % (0-10); Hematocrit 36.4 % (41.0-53.0); Hemoglobin 12.3 g/dL (13.5-16.0); Immature Granulocytes Auto 0.07 Thou/mm3 (0.00-0.00); Lymphocytes # (Auto) 1.7 Thou/mm3 (1.0-4.8); Lymphocytes % (Auto) 27 % (10-50); Mean Corpuscular HGB Conc 33.8 g/dl (31.0-37.0); Mean Corpuscular Hemoglobin 31.4 pg (25.0-35.0); Mean Corpuscular Volume 93 fL (80-100); Monocytes # (Auto) 0.6 Thou/mm3 (0.0-0.8); Monocytes % (Auto) 9 % (0-12); Neutrophils # (Auto) 3.5 Thou/mm3 (1.8-7.7); Neutrophils % (Auto) 58 % (37-80); Nucleated Red Blood Cell # 0.00 Thou/mm3 (0.00-0.00); Nucleated Red Blood Cell % 0 /100 WBC (0); Platelet Count 329 Thou/mm3 (140-440); RDW Standard Deviation 43.0 fL (35.1-43.9); Red Blood Count 3.92 Miln/mm3 (4.50-5.90); White Blood Count 6.1 Thou/mm3 (3.8-10.6)
[2025-09-06 06:33] LABS: Mitochondrial Ab NEGATIVE (NEGATIVE)
[2025-09-06 06:35] LABS: Alanine Aminotransferase 239 U/L (10-49); Albumin, Serum 3.8 gm/dL (3.5-5.0); Albumin/Globulin Ratio 1.5 (1.2-2.2); Alkaline Phosphatase 132 U/L (46-116); Anion Gap 9 (7-16); Aspartate Amino Transferase 93 U/L (0-34); BUN/Creatinine Ratio 13 Ratio (12-20); Bilirubin,Total 1.3 mg/dL (0.3-1.2); Blood Urea Nitrogen 9 mg/dL (9-23); Calcium 8.9 mg/dL (8.3-10.6); Calcium (Corrected) 9.1 mg/dL (8.5-10.1); Carbon Dioxide 25.2 mMol/L (20.0-31.0); Chloride 103 mMol/L (98-107); Creatinine (Component) 0.7 mg/dL (0.6-1.3); Estimated Creatinine Clearance 195.9 mL/min (>60); Globulin 2.5 gm/dL (2.3-3.5); Glucose 105 mg/dL (74-106); Magnesium 2.2 mg/dL (1.6-2.6); Osmolality,Calculated 272 (275-295); Phosphorous 3.6 mg/dL (2.4-5.1); Potassium 4.2 mMol/L (3.4-5.1); Sodium 137 mMol/L (136-145); Total Protein 6.3 gm/dL (5.7-8.2); eGFR > 60 See Note
[2025-09-06 08:00] VITALS: PULSE 88
[2025-09-06 08:15] VITALS: BP 112/70; PULSE 82; RESP 24; TEMP 36.4; O2SAT 98
[2025-09-06] MEDS: AZITHROMYCIN 250 MG TABLET PO (08:34)
[2025-09-06] MEDS: FOLIC ACID 1 MG TABLET PO (08:35)
[2025-09-06] MEDS: THIAMINE 100 MG TABLET PO (08:35)
[2025-09-06] MEDS: NAPROXEN 250 MG TABLET PO (08:36)
--- NOTE | 2025-09-06 09:30 | PD.IDPROG ---
Subjective Subjective Interval history: cx neg on azithro . zpack ok. Exam Vital Signs Temp Pulse Resp BP Pulse Ox O2 Del Method 97.6 F 82 24 H 112/70 98 Room Air 09/06/25 08:15 09/06/25 08:15 09/06/25 08:15 09/06/25 08:15 09/06/25 08:15 09/06/25 08:15 Narrative Exam limited review Objective - Internal Medicine Labs 09/06/25 05:17 09/06/25 05:17 Labs: Laboratory Results - last 24 hr 09/01/25 09/06/25 22:20 05:17 WBC 6.1 RBC 3.92 L Hgb 12.3 L Hct 36.4 L MCV 93 MCH 31.4 MCHC 33.8 RDW Std Deviation 43.0 Plt Count 329 Neut % (Auto) 58 Lymph % (Auto) 27 [place] % (Auto) 9 Eos % (Auto) 4 Baso % (Auto) 1 Neut # (Auto) 3.5 Lymph # (Auto) 1.7 [place] # (Auto) 0.6 Eos # (Auto) 0.2 Baso # (Auto) 0.1 Immature Gran # (Auto) 0.07 H Absolute Nucleated RBC 0.00 Immature Gran % 1 H Nucleated RBC % 0 Sodium 137 Potassium 4.2 Chloride 103 Carbon Dioxide 25.2 Anion Gap 9 BUN 9 Creatinine 0.7 Estim Creat Clear Calc 195.9 eGFR > 60 BUN/Creatinine Ratio 13 Glucose 105 Calculated Osmolality 272 L Calcium 8.9 Corrected Calcium 9.1 Phosphorus 3.6 Magnesium 2.2 Total Bilirubin 1.3 H AST 93 H ALT 239 H Alkaline Phosphatase 132 H Total Protein 6.3 Albumin 3.8 Globulin 2.5 Albumin/Globulin Ratio 1.5 Anti-Mitochondrial Titr TNP Anti-Mitochondrial Ab NEGATIVE Assessment & Plan A&P Narrative fuo with fever gone adenopathy. not biopsy able per radiology notes substance use hx. bc neg 09/01 but done again this am09/04 stay clean and sober ok for now abx if cx remain neg. you may want to repeat the imaging sooner than [address] if you want to try a zpack for presumptive csd, that is a choice you can make. I stopped the zithromax. if csd serology pos donavan for IgM, you still may want to re image him will review again prn Time Spent With Patient Time: Total time spent is greater than 50% in coordination of care (as documented) at patient's floor/unit and/or counseling patient:
[2025-09-06 12:00] VITALS: BP 130/82; PULSE 92; RESP 18; TEMP 36.5; O2SAT 97
--- NOTE | 2025-09-06 13:06 | ESDS_ITS ---
Planned Discharge Date 09/06/25 DS: Providers Provider Date of admission: 09/02/25 04:44 Primary care physician: Geoff Mccarty MD Admitting Provider: Laisha Moreno MD Attending Provider on Admission: Gustavo Waters MD Consults: 09/02/25 05:08 Consult to Gastroenterology Stat Comment: Consulting Provider: Rhonda Kwong 09/03/25 11:03 Consult to Oncology Routine Comment: Abdominopelvic and mesenteric lymphadenopathy Consulting Provider: Elliott Messina 09/04/25 10:14 Consult to Infectious Diseases Routine Comment: mysterious fevers and abdominopelvic adenopathy Consulting Provider: Marvin Roger Attending Provider on DC: Gustavo Waters MD Discharging Provider: Jason Alva DO DS: Diagnosis Problem List Completed Was Problem List Reviewed/Reconciled?: Yes Hospital Course Hospital Course Hospital course: Summary: Mr. Barbosa is a 24 y/o male with PMH of polysubstance use disorder (EtOH, cocaine, meth) who presented to the ED 09/01 with fever, generalized weakness, and malaise x 9 days and admitted for acute liver failure and acute febrile illness. ER: Febrile 102.8, tachycardic 130. Labs significant for hgb 12.7, HCT 35.8, plt 129, Na 128, Cl 96, AST 183, ALT 482, alk phos 201, total bili 4.9. UA negative for UTI. Lactic acid, troponin WNL. Hepatitis panel non reactive. BNP 204, procal 0.53. EKG sinus tachycardia HR 132, QTc 468. CXR unremarkable. CT a/p showed mesenteric, retroperitoneal, and portal hepatic lymphadenopathy. Pending blood cx. Given 2L NS, ceftriaxone 1 g IV. Hospital: During patient's hospital course, he received extensive work-up regarding his acute liver injury and ongoing febrile episodes. A 09/01 CTAP showed hepatosplenomegaly and multiple instances of abdominal, pelvic, and mesenteric lymphadenopathy. Oncology and GI were consulted and recommended a CT-guided biopsy of the abdominal lymph nodes but IR deemed the nodes too small for biopsy and instead recommended 3-month follow-up CT CAP w/ contrast. ID was also eventually consulted and suggested cat scratch disease as a differential; patient was started on IV azithromycin as a result and patient did seem to stop spiking fevers afterward. However, current suspicion is that patient's fevers and acute liver injury may have been due to a viral infection that was not tested for as it may have self-resolved on its own (lower suspicion for lymphoma). Due to patient's significant drinking history, he was also maintained on CIWA protocol and given folic acid and thiamine supplementation during this admission. His fevers were managed by PO Tylenol and he was also kept on fluid restriction for his initial hyponatremia. By 09/06, patient was deemed clinically stabilized and discharged home. Patient is safe to discharge to home. Further discharge instructions below. Instructions: - You have been started on an antibiotic for cat scratch disease. Take for 4 more days -Echo was performed inpatient, please follow up with result and request records. - Take naproxen as needed for fever - Take thiamine as directed - Please STOP drinking alcohol - Follow with your PCP for the results of your autoimmune blood tests. The results are still pending - Follow up with your Primary Care Physician for a repeat CT scan of your abdomen in 3 months to monitor the lymph nodes -- Follow up with your primary care physician within 1 week of discharge. If you do not have a primary care physician, please follow up with the [facility] Residents clinic ([phone]) ? If you experience any new, worsening or persistent symptoms either call your primary doctor, or dial 911 or present to the emergency department. #Acute liver injury #Alcoholic hepatitis #Chronic alcohol dependence #Transaminitis #Direct hyperbilirubinemia #Hepatic steatosis #Fever of unknown origin #Abdominopelvic and mesenteric lymphadenopathy #??Cat-scratch disease #??Lymphoma #SIRS criteria #Polysubstance use disorder #Alcohol use disorder #Hyponatremia (resolved) #Normocytic anemia #Thrombocytopenia (improving) Status at Discharge Cognitive/Behavioral Status at Discharge: stable Functional Status at Discharge: independent ambulation Overall Status at Discharge: patient is back to baseline Patient's care plan was discussed with my attending, Dr. Waters, and senior resident, Dr. Ryan. Jason Alva, DO Internal Medicine, PGY-1 Instructions: - You have been started on an antibiotic for cat scratch disease. Take for 4 more days -Echo was performed inpatient, please follow up with result and request records. - Take naproxen as needed for fever - Take thiamine as directed - Please STOP drinking alcohol - Follow with your PCP for the results of your autoimmune blood tests. The results are still pending - Follow up with your Primary Care Physician for a repeat CT scan of your abdom en in 3 months to monitor the lymph nodes -- Follow up with your primary care physician within 1 week of discharge. If you do not have a primary care physician, please follow up with the [facility] Residents clinic ([phone]) ? If you experience any new, worsening or persistent symptoms either call your primary doctor, or dial 911 or present to the emergency department. Senior Resident Attestation: I have discussed the case with supervising physician and brand marketing intern physician involved in the care of patient. I personally saw and examined patient and discussed the assessment and plan with the entire medical team, including attending. I agree with assessment and plan as documented above. The patient's plan was discussed with attending Dr. Jt Ryan MD PGY2 Internal Medicine Time Spent with Patient Time attestation: Total time spent providing and/or coordinating discharge services: 32 minutes Time spent: Greater than 30 minutes Exam Vital Signs Temp Pulse Resp BP Pulse Ox O2 Del Method 97.7 F 92 18 130/82 97 Room Air 09/06/25 12:00 09/06/25 12:00 09/06/25 12:00 09/06/25 12:00 09/06/25 12:00 09/06/25 12:00 Discharge Plan Plan Patient Disposition: HOME (Self Care) Care Plan Goals: - You have been started on an antibiotic for cat scratch disease. Take for 4 mor e days -Echo was performed inpatient, please follow up with result and request records. - Take naproxen as needed for fever - Take thiamine as directed - Please STOP drinking alcohol - Follow with your PCP for the results of your autoimmune blood tests. The results are still pending - Follow up with your Primary Care Physician for a repeat CT scan of your abdomen in 3 months to monitor the lymph nodes -- Follow up with your primary care physician within 1 week of discharge. If you do not have a primary care physician, please follow up with the [facility] Residents clinic ([phone]) ? If you experience any new, worsening or persistent symptoms either call your primary doctor, or dial 911 or present to the emergency department. Prescriptions/Referrals Prescriptions/Med Rec: New thiamine HCl (vitamin B1) 100 mg capsule 100 mg PO QDAY Qty: 4 0RF azithromycin 250 mg tablet 250 mg PO QDAY 4 Days Qty: 4 0RF Rx Instructions: start on day 2 of therapy naproxen 250 mg tablet 250 mg PO BID PRN (Reason: fever or pain) Qty: 6 0RF Referrals: Geoff Mccarty MD [Primary Care Provider, Family Practice] Elliott Messina MD [Physician, Radiation Oncology] Patient/Caregiver Discharge Instructions Discharge Activity: activity as tolerated Education Materials: Alcoholism Resources, Alcohol Addiction, Addiction Ask These Questions, Addiction: Getting Help, Addiction: Your Treatment Options, What Is Cat Scratch Disease?, ED Alcohol Withdrawal Seizure, ED Alcohol Withdrawal Print Language: Macedonian Stand Alone Forms: Kelsie Award Info., Patient Portal Info Letter Discharge Order Discharge Orders: Discharge (Routine); Ordered 09/06/25 Ordered By: Ashly Ryan Quality Discharge Quality Measures VTE prophylaxis Attestestation MD Attestation I have seen and examined the patient. I was physically present for the allison portions of the services provided including history, physical exam, diagnosis, treatment plans and orders. I agree with assessment and plan of care as documented by residents. Even though this this note was carefully revised there may still be minor errors in physician/ophthalmologist due to voice recognition software. Gustavo Waters MD
--- NOTE | 2025-09-06 21:55 | PD.IMPROG ---
Documentation for date of: 09/06/25 Subjective Subjective Interval history: Late entry for the note Discharge planning in progress for the patient to go home on azithromycin for 4 more days No fever since starting the azithromycin Repeat CT scan of the abdomen pelvis in 3 months to follow-up on the lymphadenopathy although very low suspicion for lymphoma Exam Vital Signs Temp Pulse Resp BP Pulse Ox O2 Del Method 97.7 F 92 18 130/82 97 Room Air 09/06/25 12:00 09/06/25 12:00 09/06/25 12:00 09/06/25 12:00 09/06/25 12:00 09/06/25 12:00 Objective Labs 09/06/25 05:17 09/06/25 05:17 Labs: Laboratory Results - last 24 hr 09/01/25 09/06/25 22:20 05:17 WBC 6.1 RBC 3.92 L Hgb 12.3 L Hct 36.4 L MCV 93 MCH 31.4 MCHC 33.8 RDW Std Deviation 43.0 Plt Count 329 Neut % (Auto) 58 Lymph % (Auto) 27 [place] % (Auto) 9 Eos % (Auto) 4 Baso % (Auto) 1 Neut # (Auto) 3.5 Lymph # (Auto) 1.7 [place] # (Auto) 0.6 Eos # (Auto) 0.2 Baso # (Auto) 0.1 Immature Gran # (Auto) 0.07 H Absolute Nucleated RBC 0.00 Immature Gran % 1 H Nucleated RBC % 0 Sodium 137 Potassium 4.2 Chloride 103 Carbon Dioxide 25.2 Anion Gap 9 BUN 9 Creatinine 0.7 Estim Creat Clear Calc 195.9 eGFR > 60 BUN/Creatinine Ratio 13 Glucose 105 Calculated Osmolality 272 L Calcium 8.9 Corrected Calcium 9.1 Phosphorus 3.6 Magnesium 2.2 Total Bilirubin 1.3 H AST 93 H ALT 239 H Alkaline Phosphatase 132 H Total Protein 6.3 Albumin 3.8 Globulin 2.5 Albumin/Globulin Ratio 1.5 Anti-Mitochondrial Titr TNP Anti-Mitochondrial Ab NEGATIVE Impressions Impression: Fever due to most likely cat scratch fever however low suspicion for lymphoma Outpatient follow-up with the PCP and oncology No GI follow-up needed Assessment & Plan A&P Narrative fuo with fever gone adenopathy. not biopsy able per radiology notes substance use hx. bc neg 09/01 but done again this am09/04 stay clean and sober ok for now abx if cx remain neg. you may want to repeat the imaging sooner than [address] if you want to try a zpack for presumptive csd, that is a choice you can make. I stopped the zithromax. if csd serology pos [place] for IgM, you still may want to re image him will review again prn Time Spent With Patient Time: Total time spent is greater than 50% in coordination of care (as documented) at patient's floor/unit and/or counseling patient:
[2025-09-08 19:51] LABS: EBV EBNA Ab (IgG) >600.00 U/mL; EBV VCA Ab (IgG) 359.00 U/mL; EBV VCA Ab (IgM) <36.00 U/mL
[2025-09-09 06:59] LABS: ANA Screen, IFA NEGATIVE (NEGATIVE)
[2025-09-09 07:05] LABS: CMV Antibody (IgG) >10.00 U/mL; CMV Antibody (IgM) <30.00 AU/mL; Ceruloplasmin* 32 mg/dL (14-30); EBV Ab Interpretation PAST
[2025-09-10 06:16] LABS: ANA Screen, IFA NEGATIVE (NEGATIVE); Alpha-1-Antitrypsin* 223 mg/dL (83-199); Mitochondrial Ab NEGATIVE (NEGATIVE)
[2025-09-10 06:17] LABS: Actin Antibody (IgG)* 25 U; Ceruloplasmin* 32 mg/dL (14-30); Copper* 151 mcg/dL (70-175)
== END 2025-09-06 12:45 | disposition home or self-care (01) | DRG 279 ==
LOC: SERX 09-02 04:43 → SERHOLD 09-02 04:46 → S3SX 09-02 06:32
PROVIDERS: Internal Medicine Infectious Disease; Nurse Practitioner Family; Specialist; Student in an Organized Health Care Education/Training Program; Admitting Provider Student in an Organized Health Care Education/Training Program; Emergency Provider Emergency Medicine; PCP Family Medicine; Visit Provider Student in an Organized Health Care Education/Training Program
DX: K72.00 Acute and subacute hepatic failure without coma (principal); R59.1 Generalized enlarged lymph nodes; Z68.37 Body mass index [BMI] 37.0-37.9, adult; E87.1 Hypo-osmolality and hyponatremia; D64.89 Other specified anemias; D69.6 Thrombocytopenia, unspecified; R82.2 Biliuria; F10.20 Alcohol dependence, uncomplicated; F14.10 Cocaine abuse, uncomplicated; F17.200 Nicotine dependence, unspecified, uncomplicated; H66.90 Otitis media, unspecified, unspecified ear; K70.10 Alcoholic hepatitis without ascites; M43.6 Torticollis
CPT/HCPCS: 36415; 71045; 74176; 76705; 80053; 80061; 80074; 80307; 80320; 80329; 81001; 82103; 82105; 82248; 82390; 82525; 82728; 83036; 83540; 83550; 83605; 83615; 83690; 83735; 83880; 84100; 84145; 84443; 84484; 85025; 85046; 85610; 85652; 85730; 86015; 86038; 86140; 86255; 86308; 86331; 86635; 86644; 86645; 86664; 86665; 86703; 86780; 87040; 87491; 87502; 87591; 87661; 87811; 93005; 93225; 93306; 99283; J0696; J1644; J3411; J3480; J7030; J7120; A9270; G0480